=== PATIENT | male | born 1940 | race Caucasian/White ===

== ENCOUNTER 2020-12-05 12:48 | Inpatient (IN) | payer MEDICARE, SELFPAY ==
[2020-12-05] VITALS (10 sets, daily range): BP systolic 113–156; BP diastolic 62–90; PULSE 76–98; RESP 19–42; TEMP 36.5–37.5; O2SAT 97–100; BMI 21.2
--- NOTE | ~2020-12-05 | XR_ITS ---
EXAMINATION: XR chest 2V DATE: 12/08/2020 11:42 INDICATION: Pneumonia. TECHNIQUE: Frontal and lateral views of the chest were obtained. COMPARISON: Chest single view 12/05/2020, chest CT 12/05/2020 FINDINGS: There are small pleural effusions. There are airspace opacities at the lung bases. No pneum othorax. The heart size is normal. IMPRESSION: 1. Airspace opacities at the lung bases, consistent with atelectasis versus pneumonia. 2. Small pleural effusions. Reviewed, dictated and finalized at location A. IMPRESSION: 1. Airspace opacities at the lung bases, consistent with atelectasis versus pne umonia. 2. Small pleural effusions.
--- NOTE | ~2020-12-05 | CT_ITS ---
EXAMINATION: CT brain wo con DATE: 12/06/2020 08:52 INDICATION: Confusion. Altered mental status. TECHNIQUE: Computed tomography (CT) of the head was performed without intravenous contrast. The mA wa s adjusted according to patient size. Iterative reconstruction technique was employed. Exam dose: 68 1.00 mGy-cm total exam DLP. COMPARISON: 09/09/2013 MRI brain/brainstem FINDINGS: No intracranial mass lesion or hemorrhage or cerebrovascular accident is detected. No midli ne shift or mass effect effect. There is moderately prominent central and cortical cerebral atrophy. There is nonspecific diminished attenuation cerebral white matter, consistent with chronic small vessel ischemic changes. Bilateral c arotid siphon internal carotid artery calcifications are noted. No subdural or epidural hematoma. The orbital contents are unremarkable. No fracture or bone destruction of the cranial vault. There is mild mucoperiosteal thickening of the left maxillary sinus. The paranasal sinuses and mastoi d air cells otherwise are normally developed and aerated. IMPRESSION: Cerebral and cerebellar volume loss Cerebral atherosclerosis and chronic small vessel ischemic changes of the cerebral white matter Reviewed, dictated and finalized at Location A. Reviewed, dictated and finalized at location A. IMPRESSION: Cerebral and cerebellar volume loss Cerebral atherosclerosis and chronic small vessel ischemic changes of the cereb ral white matter
--- NOTE | ~2020-12-05 | US_ITS ---
EXAMINATION: US abdomen limited DATE: 12/05/2020 18:02 INDICATION: Distended gallbladder on CT TECHNIQUE: Multiple grayscale and Doppler ultrasound images of the abdomen were obtained. COMPARISON: CT dated 12/05/2020 FINDINGS: The pancreatic head and body are normal in appearance. The pancreatic tail is not visualized. The vi sualized proximal to mid inferior vena cava is normal. Liver has normal echogenicity and contour, wit h a smooth surface. No liver lesion identified. No intrahepatic biliary duct dilation suspected. Port al venous flow was seen in the hepatopetal, normal direction and has normal Doppler waveform. The gal lbladder is mildly dilated to 4.9 cm in maximal diameter but otherwise normal in appearance with no w all thickening or pericholecystic fluid. There is no cholelithiasis. The common bile duct measures 4 mm, which is normal. Sonographic Young sign was reported as negative by the commercial pilot.Visualized portion of the right kidney demonstrates normal echogenicity with no hydronephrosis. IMPRESSION: 1. Mild dilation of the otherwise normal gallbladder with no wall thickening, cholelithiasis or sonog raphic Young sign to suggest acute cholecystitis. No intra or extrahepatic biliary ductal dilation. Reviewed, dictated and finalized at location A. IMPRESSION: 1. Mild dilation of the otherwise normal gallbladder with no wall thickening, c holelithiasis or sonographic Young sign to suggest acute cholecystitis. No int ra or extrahepatic biliary ductal dilation.
--- NOTE | ~2020-12-05 | US_ITS ---
EXAMINATION: US venous doppler [facility] DATE: 12/06/2020 09:59 INDICATION: Hypoxia, acute pulmonary emboli TECHNIQUE: [place] scale images without and with compression and Doppler images of the bilateral lower e xtremity veins were obtained. COMPARISON: None FINDINGS: The right common femoral vein, profunda femoral vein, femoral vein, popliteal vein, peroneal trunk, p osterior tibial veins, and greater saphenous vein are patent. The left common femoral vein, profunda femoral vein, femoral vein, popliteal vein, peroneal trunk, po sterior tibial veins, and greater saphenous vein are patent. IMPRESSION: 1. Patent bilateral lower extremity veins. No evidence of deep venous thrombosis. Reviewed, dictated and finalized at location B. IMPRESSION: 1. Patent bilateral lower extremity veins. No evidence of deep venous thrombosi s.
--- NOTE | ~2020-12-05 | CT_ITS ---
EXAMINATION: CT brain wo con INDICATION: Generalized weakness and confusion COMPARISON: None TECHNIQUE: Standard unenhanced head CT. The dose-length product (DLP) was 681.00 mGy-cm. The mA was a djusted according to patient size. Iterative reconstruction technique was employed. FINDINGS: There is no acute intraparenchymal hemorrhage. No evidence of mass lesion. No evidence of a cute infarction. There is mild periventricular and subcortical hypodensity probably related to small vessel ischemic disease. There is mild prominence of the sulci and ventricles related to cerebral atr ophy. Intracranial calcified cerebral atherosclerosis is noted. There are no extra-axial collections. There is no mass effect or midline shift. Changes in the globes are likely from ocular lens surgery. The visualized sinuses and mastoid air cells are well aerated. IMPRESSION: 1. No acute intracranial abnormality. 2. Age related findings. Reviewed, dictated and finalized at location B.
--- NOTE | ~2020-12-05 | XR_ITS ---
MODIFIED ESOPHAGRAM HISTORY: Dysphagia. TECHNIQUE: Modified barium esophagram was performed by speech pathologist under radiologist fluorosco pic guidance. This was recorded on tape. The exam was reviewed on 12/12/2020 09:30 CDT. The DAP for this procedure was 0.628 Gycm2. Fluoroscopy time is 1 minute. FINDINGS: Lateral projection of the cervical spine demonstrates normal alignment.. During pharyngea l stage there is reduced tongue base retraction, reduced pharyngeal squeeze, vallecular residue, piri form sinus residue with laryngeal penetration and aspiration during multiple attempts to swallow pudd ing. Cough reflux elicited.. IMPRESSION: 1: Laryngeal penetration with aspiration. 2: Please refer to speech pathologist report for additional detail. Reviewed, dictated and finalized at location A.
--- NOTE | ~2020-12-05 | XR_ITS ---
EXAMINATION: XR chest 1V portable DATE: 12/05/2020 13:31 INDICATION: Lethargy. Hypoxia. TECHNIQUE: A single frontal view of the chest was obtained. COMPARISON: None. FINDINGS: The chest demonstrates clear lungs without pneumonia, pleural effusion, or pneumothorax. Th e heart size is normal. IMPRESSION: 1. No acute cardiopulmonary disease. Reviewed, dictated and finalized at location A.
--- NOTE | ~2020-12-05 | CT_ITS ---
EXAMINATION: CTA chest PE protocol DATE: 12/05/2020 17:11 INDICATION: Hypoxia. TECHNIQUE: Computed tomography angiography (CTA) of the chest was performed with 100 mL Omnipaque-350 intravenous contrast timed to evaluate the pulmonary arteries. Coronal maximum intensity projection 3D-reconstructions were created by the technologist. Automated exposure control and iterative reconst ruction technique were employed. The dose-length product was 321.85 mGy-cm. COMPARISON: Chest single view 12/05/2020 FINDINGS: There are dependent airspace opacities bilaterally. There are centrilobular nodules in righ t lower lobe. There is mucous plugging in left lower lobe. No pleural effusion. The heart size is nor mal. There are coronary artery calcifications. No pericardial effusion. There are acute pulmonary emb barrington in the lower lobes, left worse than right. The gallbladder is distended. There is mild thoracic s pondylosis. IMPRESSION: 1. Acute pulmonary emboli in the lower lobes, left worse than right. 2. Bilateral lower lobe pneumonia. 3. Distended gallbladder suspicious for acute cholecystitis. Reviewed, dictated and finalized at location A.
--- NOTE | 2020-12-05 13:17 | ECG_ITS ---
Measurements Intervals [place] Rate: 99 P: 81 TN: 108 QRS: 78 QRSD: 85 T: 76 QT: 348 QTc: 447 Interpretive Statements SINUS RHYTHM WITH SHORT TN INTERVAL POSSIBLE RIGHT ATRIAL ENLARGEMENT BORDERLINE ST-T WAVE ABNORMALITY- ANTEROLAT/INF LEADS BORDERLINE ECG Electronically Signed On 12-05-2020 13:42:39 CDT by Yousuf Balbuena D.O.
[2020-12-05] MEDS: ALBUTEROL SULFATE NEB 2.5 MG/0.5 ML INH 5 MG INHALATION ×2 (13:38→20:48)
[2020-12-05] MEDS: IPRATROPIUM BR 0.02% INH SOLN 0.5 MG/2.5 ML VIAL INHALATION ×2 (13:38→20:47)
[2020-12-05 14:15] LABS: Basophils Percent Auto 0.1 % (0.2-1.2); Hematocrit 43.4 % (42.0-52.0); Hemoglobin 15.1 g/dL (14.0-18.0); Immature Granulocyte Absolute 0.07 K/mm3 (0.00-0.031); Immature Granulocyte Percent A 0.3 % (0-0.5); Lymphocytes Absolute Auto 0.53 K/mm3 (0.9-3.2); Lymphocytes Percent Auto 2.6 % (18.3-44.2); Mean Corpuscular HGB Conc 34.8 g/dl (32-36); Mean Corpuscular Hemoglobin 32.7 pg (26-34); Mean Corpuscular Volume 93.9 fl (80-100); Mean Platelet Volume 9.2 fl (7.4-10.4); Monocytes Absolute Auto 1.2 K/mm3 (0.1-0.6); Monocytes Percent Auto 6.1 % (2.6-8.5); Neutrophils Absolute Auto 18.3 K/mm3 (1.3-6.7); Neutrophils Percent Auto 90.9 % (45.5-73.1); Platelet Count Result 361 k/mm3 (150-375); Red Blood Count 4.62 M/mm3 (4.6-6.20); Red Cell Distribution Width 12.1 % (11.5-14.5); White Blood Count 20.1 K/mm3 (4.5-10.0)
[2020-12-05 14:25] LABS: Ammonia < 9 umol/L (9-30)
[2020-12-05 14:26] LABS: Alanine Aminotransferase 18 U/L (4-50); Albumin Level 4.1 g/dL (3.5-5.1); Alkaline Phosphatase 92 U/L (38-126); Anion Gap 13 mmol/L (8-16); Aspartate Amino Transferase 92 U/L (17-59); Bilirubin,Total 1.5 mg/dL (0.2-1.3); Blood Urea Nitrogen 39 mg/dL (9-20); Calcium 9.4 mg/dL (8.4-10.2); Carbon Dioxide 28 mmol/L (22-30); Chloride 101 mmol/L (98-107); Estimated CRCL calculation 42 ml/min; Estimated Glomerular Filt Rate 58; Glucose 128 mg/dL (65-110); Potassium 3.7 mmol/L (3.4-5.0); Sodium 142 mmol/L (137-145)
[2020-12-05 14:31] LABS: Lactic Acid Reflex 2.7 mmol/L (0.7-2.1)
[2020-12-05] MEDS: LACTATED RINGERS 1,000 ML 999 ML IV CONT ×2 (14:38)
[2020-12-05 14:43] LABS: Troponin I 0.053 ng/mL (0.000-0.034)
[2020-12-05 15:00] LABS: Add Urine Microscopic? YES; Appearance Urine Clear (Clear); Bilirubin Urine 1+ (Negative); Blood Urine 2+ (Negative); Color Urine Amber (Yellow); Glucose Urine UA Negative (Negative); Ketones Urine 1+ mg/dL (Negative); Leukocyte Esterase Ur Negative LEU/UL (Negative); Mucus Urine Rare /lpf; Nitrate Urine Negative (Negative); Protein Urine 1+ mg/dL (Negative); RBC Urine 51-75 /hpf (0-2); Specific Grav Ur 1.027 (1.001-1.035); Squamous Epithelial Cell Urine Rare /hpf (Few)
--- NOTE | 2020-12-05 15:34 | ED.WEAKNESS ---
HPI - Weakness General Chief complaint: Weakness Stated complaint: Lethargy Time Seen by Provider: 12/05/20 12:57 Source: EMS Mode of arrival: EMS Limitations: dementia History of Present Illness HPI Narrative: 80-year-old male Hardly anything is known about this patient because he came from respite care at [facility] and they did not even provide a medication list, only a facesheet which does include DNR status, and there is nothing recent in the medical record here either All we know is that EMS was summoned to bring him to the hospital because of decreased responsiveness and that they placed him on facemask oxygen because of low oxygen saturations Here he is indeed lethargic does not follow commands does open his eyes when his name is called His arrived later and said he got a history of Lewy body dementia, had been at [facility] for about a week, there have been some thoughts of him having a little bit less activity and ambulation when they were in contact with him while he was there, and that basically when they arrived to pick him up today he was having trouble breathing and was not responding to them as well as usual She confirms he is a DNR. Also she is concerned she won't be able to have him at home any longer, wishes to consider possible permanent placement +/- hospice. Related Data Allergies Allergy/AdvReac Type Severity Reaction Status Date / Time No Known Drug Allergies Allergy Verified 12/05/20 13:12 Review of Systems Review of Systems: ROS unobtainable: Yes unobtainable due to mental status Exam Const: General: cooperative and ill appearing Orientation/consciousness: confusion Other: Elderly, frail, lethargic HENMT: Head: normocephalic and atraumatic Ears: external ears normal General nose exam: no epistaxis Mouth: Yes dry mucous membranes Eyes: Conjunctivae: conjunctivae normal EOM: EOMs intact bilaterally Neck: Neck: normal visual inspection, supple and no JVD Resp: Effort & Inspection: normal respiratory effort, not labored and tachypneic Auscultation: no rales, rhonchi, no wheezes and other (BS =) Cardio: Rate: regular rate Rhythm: regular rhythm Heart sounds: no murmurs GI: GI Palp: Yes Soft to palpation, No Guarding due to palpation present (GI) and No Rebound tenderness present Skin: General skin exam: normal color and no rashes or lesions noted Neuro: Other: O x0-1, not alert, did move both arms and both legs but not upon request Extrem: General: normal to inspection and no pedal edema Psych: Affect: normal affect Course Course Emergency Course: Vertigo on supplemental O2 and also received nebs because of the hypoxia; there was a presumption of some kind of infection and he received IV fluids and empiric antibiotics, and on recheck his heart rate was normal his blood pressure was normal and his oxygen saturation was normal; slight troponin leak Discussed with hospitalist for admission Vital Signs Vital signs: Vital Signs Temperature 36.5 C 12/05/20 12:50 Pulse Rate 97 12/05/20 12:50 Respiratory Rate 42 H 12/05/20 12:50 Blood Pressure 113/64 12/05/20 12:50 Pulse Oximetry 100 12/05/20 12:50 Temperature 36.5 C 12/05/20 12:50 Pulse Rate 81 12/05/20 15:30 Respiratory Rate 31 H 12/05/20 13:48 Blood Pressure 144/64 H 12/05/20 15:30 Pulse Oximetry 99 12/05/20 15:30 MDM - Weakness Lab Data Result diagrams: 12/05/20 13:56 12/05/20 13:56 Labs: Lab Results 12/05/20 12/05/20 12/05/20 Range/Units 13:56 13:56 13:56 WBC 20.1 H (4.5-10.0) K/mm3 RBC 4.62 (4.6-6.20) M/mm3 Hgb 15.1 (14.0-18.0) g/dL Hct 43.4 (42.0-52.0) % MCV 93.9 (80-100) fl MCH 32.7 (26-34) pg MCHC 34.8 (32-36) g/dl RDW 12.1 (11.5-14.5) % Plt Count 361 (150-375) k/mm3 MPV 9.2 (7.4-10.4) fl Immature Gran % (Auto) 0.3 (0-0.5) % Neut % (Auto) 90.9 H (45.5-73.1) % Lymph % (Auto) 2
--- NOTE | 2020-12-05 16:30 | PC.NURSE ---
Pt called out asking for pain medication. This RN notified MD. no new orders at this time
--- NOTE | 2020-12-05 17:01 | PC.NURSE ---
pt called out for pain and nausea medication. This RN notified
[2020-12-05 17:13] LABS: Reflex Lactic Acid Yes or No Add Lactic
[2020-12-05] MEDS: ENOXAPARIN 80 MG/0.8 ML SYRINGE 70 MG SUB-Q (17:56)
[2020-12-05 18:04] LABS: Lactic Acid 2.9 mmol/L (0.7-2.1)
--- NOTE | 2020-12-05 18:49 | PC.NURSE ---
This patient, Chirag Rodrigues, was admitted to [facility] Surg Room 307-02. Patient/family oriented to hospital policies and general routines including ID bracelet, bed and alarms, visiting hours, pain management, procedures, bathroom and other care routines, personal items, smoking policy, room service/diet, and visiting hours. Information on how to activate the Rapid Response Team has been discussed. Patient/Family are encouraged to report perceived risks to care and to ask questions if they do not understand what they are told or what they should do.
[2020-12-05 19:45] LABS: NT Pro B Type Natriuretic Pept 1350 pg/mL (5-100); Troponin I 0.045 ng/mL (0.000-0.034)
[2020-12-05] MEDS: LACTATED RINGERS 1,000 ML 125 ML IV CONT (20:26)
[2020-12-05 20:56] LABS: Troponin I 0.044 ng/mL (0.000-0.034)
--- NOTE | 2020-12-05 21:09 | PM.IMHP ---
H&P: HPI History of Present Illness Date/Time: 12/05/20 21:09 Chief Complaint: ALTERED MENTAL STATUS Narrative: THIS IS AN 80-YEAR-OLD MALE WITH PAST MEDICAL HISTORY SIGNIFICANT FOR LEVEL BODY DEMENTIA. PATIENT WAS BROUGHT IN FROM [facility]. HE WAS BROUGHT IN DUE TO CONCERNS FOR THE PATIENT'S DECLINE IN OVERALL FUNCTIONING STATUS FROM HIS USUAL AND ALTERED MENTAL STATUS. LATER ON CAME TO THE EMERGENCY ROOM AND STATED THAT SHE WILL LIKE FOR PERMANENT PLACEMENT FOR HER AT A SNF SHE IS UNABLE TO PROVIDE CARE FOR HIM, HE HAS ADVANCED DEMENTIA. PATIENT HAD DECREASED PULSE OX PRIOR TO COMING TO THE HOSPITAL AND EMS WAS CALLED DOES HOW HE ARRIVED TO THE EMERGENCY ROOM. PATIENT IS UNABLE TO PROVIDE ANY HISTORY HAD HE HE ONLY MOANS AND GROANS. PRELIMINARY WORKUP WAS SIGNIFICANT FOR A CTA OF CHEST WITH ACUTE PULMONARY EMBOLI AND BILATERAL INFILTRATES. Review of Systems Review of Systems: ROS unobtainable: Yes unobtainable due to medical condition (ADVANCED DEMENTIA) [facility] Social History Social History Smoking status: Never smoker Second hand tobacco smoke exposure: No Alcohol intake: former Substance use: never Substance use type: does not use Spiritual care concerns: No Meds Home Medications and Allergies Home Medications Medication Instructions Recorded Confirmed Type carbidopa-levodopa [Sinemet] See Rx Instructions .ROUTE .COMPLEX 12/05/20 12/05/20 History donepezil [Aricept] 10 mg PO DAILY 12/05/20 12/05/20 History ibuprofen 400 mg PO Q6H PRN 12/05/20 12/05/20 History latanoprost [Xalatan] 1 drp EACH EYE HS 12/05/20 12/05/20 History memantine [Namenda XR] 28 mg PO DAILY 12/05/20 12/05/20 History quetiapine [Seroquel] 25 mg PO HS 12/05/20 12/05/20 History Allergies Allergy/AdvReac Type Severity Reaction Status Date / Time No Known Drug Allergies Allergy Verified 12/05/20 13:12 Vital Signs Vital Signs - 24 hr 12/05/20 12:50 12/05/20 13:38 12/05/20 13:48 Temperature 97.7 F Pulse Rate 97 97 98 Respiratory Rate 42 H 34 H 31 H Blood Pressure 113/64 Pulse Oximetry 100 12/05/20 15:30 12/05/20 17:13 12/05/20 17:17 Temperature Pulse Rate 81 88 Respiratory Rate 19 Blood Pressure 144/64 H 156/90 H Pulse Oximetry 99 97 100 12/05/20 17:59 12/05/20 18:38 Temperature Pulse Rate 81 81 Respiratory Rate 23 H 32 H Blood Pressure 122/69 122/68 Pulse Oximetry 97 97 Exam Narrative: LAYING IN BED Const: General: comfortable, no acute distress, well developed, ill appearing acutely and patient obtunded Nutritional Appearance: average body habitus Orientation/consciousness: patient obtunded HENMT: Head: normal to inspection, normocephalic and atraumatic Ears: hearing grossly normal bilaterally General nose exam: Normal external nose present Face and sinus: normal facial exam Eyes: General: appearance normal, both eyes and all related structures Alignment and Position: alignment normal Sclera: sclerae normal Pupils: Equal, round and reactive pupils present EOM: EOMs intact bilaterally Neck: Neck: full ROM, no lymphadenopathy and no JVD Thyroid: thyroid normal Lymphatic: no lymphadenopathy noted Resp: Effort & Inspection: normal respiratory effort Auscultation: diminished lung sounds Cardio: Jugular venous distension: no JVD Rate: regular rate Rhythm: regular rhythm Heart sounds: S1 normal heart sound present and S2 normal heart sound present GI: GI Palp: Yes Soft to palpation, No Tenderness to palpation present (GI), No Guarding due to palpation present (GI) and Yes No hepatosplenomegaly present : General: Yes deferred Skin: Rashes: no rashes Wounds: no wounds Neuro: General: CN's II-XI intact bilaterally Cranial nerves: Yes CN's II-XII intact bilaterally and Yes Equal, round and reactive pupils present Cognition (Neuro): abnormal cognition Gait exam (Neuro): Unable
[2020-12-06] VITALS (20 sets, daily range): BP systolic 148–157; BP diastolic 67–87; PULSE 75–99; RESP 16–30; TEMP 36.8–37.2; O2SAT 95–100; BMI 21.2
--- NOTE | 2020-12-06 | ECHO_ITS ---
Patient Info Name: Chirag Rodrigues Age: 80 years : 1940 Gender: Male Ht: 65 in Wt: 203 lbs BSA: 2.09 m2 HR: 68 bpm BP: 151 / 76 mmHg Heart Rhythm: Sinus Rhythm Technical Quality: Poor Exam Date: 12/06/2020 1:07 PM Exam Location: [facility] Pulmonary Patient Status: Inpatient Admit Date: 12/05/2020 Staff Ordering Physician: Sarah Barnes MD Director Of Resource Development: Mer Mullins RDCS Attending Provider: Nellie Cosby MD Referring Physician: Molly OSPINA; Exam Type: CA echo dop color flow w con Study Info Indications I27.82 - Chronic pulmonary embolism Complete two-dimensional, color flow and Doppler transthoracic echocardiogram is performed with contrast to opacify the left ventricle and to improve the deliniation of the left ventricle endocardial borders. Contrast/Agitated Saline Contrast/Ag. Saline: Definity Amount: 1.00 ml Administered By: Danna Carter RN Existing IV Access: Yes IV Access Condition: patent with no signs of infiltration Reason for Poor Study: poor echocardiographic windows Summary 1. Technically difficult study with limited views. 2. Left ventricular systolic function is normal, estimated at 65-70%. 3. There is no increased left ventricular wall thickness. 4. There is trace tricuspid valve regurgitation. 5. Normal right ventricular systolic pressure estimated at 27 mmHg. 6. There is a small pericardial effusion with fibrinous material within the pericardial space anteriorly. Left Ventricle Left ventricular chamber dimension is normal. Left ventricular systolic function is normal, estimated at 65-70%. There is no increased left ventricular wall thickness. The left ventricular diastolic function is grade I diastolic dysfunction. Technically difficult study with limited views. Right Ventricle Right ventricular chamber dimension is normal. Right ventricular systolic function is normal. Left Atria Left atrial chamber dimension is normal. Right Atria Right atrial chamber dimension is normal. Aortic Valve The aortic valve is not well visualized. There is no aortic valve stenosis. There is no aortic valve regurgitation. Pulmonic Valve The pulmonic valve is not well visualized. Mitral Valve The mitral valve has normal leaflets. There is trace mitral valve regurgitation. The mitral valve annulus is mildly calcified. Tricuspid Valve The tricuspid valve leaflets are normal. There is trace tricuspid valve regurgitation. Normal right ventricular systolic pressure estimated at 27 mmHg. Pericardium/Pleural The pericardium appears normal. There is a small pericardial effusion with fibrinous material within the pericardial space anteriorly. Inferior Vena Cava Normal inferior vena cava with >50% collapse upon inspiration consistent with normal right atrial pressure, 5 mmHg. Tricuspid Valve Name Value Normal Estimated PAP/RSVP RA Pressure 5 mmHg <=5 Report Signatures
[2020-12-06] MEDS: ALBUTEROL SULFATE NEB 2.5 MG/0.5 ML INH 5 MG INHALATION ×4 (01:45→20:02)
[2020-12-06] MEDS: IPRATROPIUM BR 0.02% INH SOLN 0.5 MG/2.5 ML VIAL INHALATION ×4 (01:45→20:03)
[2020-12-06] MEDS: LACTATED RINGERS 1,000 ML 75 ML IV CONT ×2 (02:26→15:50)
[2020-12-06] MEDS: LATANOPROST 0.005% OP SOLN 2.5 ML BTL 1 DROP EACH EYE ×2 (02:26→21:37)
[2020-12-06] MEDS: MEMANTINE HCL XR 28 MG CAP PO (08:02)
[2020-12-06] MEDS: DONEPEZIL HCL 10 MG TABLET PO (08:02)
[2020-12-06] MEDS: CARBIDOPA/LEVODOPA 25/100 MG TABLET 1 TABLET BY MOUTH (08:04)
[2020-12-06] MEDS: PERFLUTREN LIPID MICROSPHERES 1.5 ML VIAL DILUTED TO 10 ML TOTAL VOLUME IV PUSH (13:32)
--- NOTE | 2020-12-06 15:47 | PCSTNOTE ---
On this date, patient refused to complete the attempted Bedside Swallow evaluation. present and stated patient has had ice chips with no coughing noted. He took one bite of pudding off the tip of a spoon but refused to continue. He basically stated, therapist should get the hell out of here. Additionally, he did not seem to be able to recognize his . Therapist contacted Karla, Hospitalist, to inform her and the evaluation will be attempted again in the morning.
--- NOTE | 2020-12-06 16:27 | PM.IMPN ---
Progress Note: A&P Assessment and Plan (1) Acute pulmonary embolism: Code(s): I26.99 - Other pulmonary embolism without acute cor pulmonale Status: Acute Assessment and Plan: Continue LOVENOX VENOUS DOPPLER-->Patent bilateral lower extremity veins; no evidence of deep venous thrombosis ECHOCARDIOGRAM-->pending (2) Pneumonia: Code(s): J18.9 - Pneumonia, unspecified organism Status: Acute Assessment and Plan: Continue with ROCEPHIN AND ZITHROMAX Follow BC S/p ZOSYN x1 IN EMERGENCY ROOM (3) Altered mental status: Code(s): R41.82 - Altered mental status, unspecified Status: Acute Assessment and Plan: LIKELY SECONDARY TO ABOVE CT of brain-->Cerebral and cerebellar volume loss Cerebral atherosclerosis and chronic small vessel ischemic changes of the cerebral white matter SUPPORTIVE CARE (4) Lewy body dementia: Code(s): G31.83 - Dementia with Lewy bodies; F02.80 - Dementia in other diseases classified elsewhere without behavioral disturbance Status: Acute Assessment and Plan: CONTINUE MEMANTINE, DONEPEZIL and SEROQUEL (5) Parkinson's disease: Code(s): G20 - Parkinson's disease Status: Acute Assessment and Plan: CONTINUE CARBIDOPA LEVODOPA (6) Elevated troponin: Code(s): R77.8 - Other specified abnormalities of plasma proteins Status: Acute Assessment and Plan: LIKELY TO BE NONISCHEMIC MYOCARDIAL INJURY Denies any CP of SOB CONTINUE TO MONITOR Subjective Date/time seen: 12/06/20 16:27 Interval history: pt seen and evaluated; at the bedside; no acute events overnight Review of Systems Review of Systems: ROS unobtainable: Yes unobtainable due to mental status Exam Const: General: no acute distress, alert and awake HENMT: Head: normocephalic and atraumatic Face and sinus: face symmetric Mouth: Yes Normal oral and palatal mucosa present Eyes: EOM: EOMs intact bilaterally Neck: Neck: full ROM, trachea midline and no JVD Thyroid: thyroid normal Chest: Chest palpation & inspection: normal inspection of the chest Resp: Effort & Inspection: normal respiratory effort Auscultation: diminished lung sounds Cardio: Jugular venous distension: no JVD Rate: regular rate Rhythm: regular rhythm Heart sounds: S1 normal heart sound present and S2 normal heart sound present GI: Inspection: normal to inspection GI Palp: Yes Soft to palpation Percussion: Yes normal to percussion Auscultation: normal bowel sounds : General: Yes no CVA tenderness Back/Spine/Pelvis: Back: no CVA tenderness Skin: General skin exam: normal color Rashes: no rashes Neuro: General: oriented to person Psych: Appearance: grossly normal Affect: normal affect Judgement: Good judgement present (Psych) Objective Data Vital Signs Vital Signs: Vital Signs - 24 hr 12/05/20 17:13 12/05/20 17:17 12/05/20 17:59 Temperature Pulse Rate 88 81 Respiratory Rate 19 23 H Blood Pressure 156/90 H 122/69 Pulse Oximetry 97 100 97 12/05/20 18:38 12/05/20 20:00 12/05/20 22:00 Temperature 37.5 C Pulse Rate 81 79 76 Respiratory Rate 32 H 22 H Blood Pressure 122/68 130/62 Pulse Oximetry 97 98 99 12/06/20 00:00 12/06/20 00:50 12/06/20 01:45 Temperature 36.9 C Pulse Rate 76 80 97 Respiratory Rate 20 30 H Blood Pressure 151/76 H Pulse Oximetry 98 12/06/20 02:00 12/06/20 04:00 12/06/20 06:00 Temperature 37.1 C Pulse Rate 99 75 84 Respiratory Rate 28 H 18 Blood Pressure 148/79 H Pulse Oximetry 100 12/06/20 09:03 12/06/20 09:05 12/06/20 09:15 Temperature Pulse Rate 87 75 Respiratory Rate 20 20 Blood Pressure Pulse Oximetry 95 12/06/20 09:30 12/06/20 14:00 12/06/20 14:23 Temperature 36.8 C Pulse Rate 88 87 Respiratory Rate 18 20 Blood Pressure 157/67 H Pulse Oximetry 100 98 12/06/20 14:35 Temperature Pulse Rate 80 Respiratory Rate 20 Blood Pressure
[2020-12-06] MEDS: ENOXAPARIN 100 MG/ML SYRINGE 90 MG SUB-Q (17:38)
[2020-12-07] VITALS (16 sets, daily range): BP systolic 136–153; BP diastolic 61–84; PULSE 72–93; RESP 18–24; TEMP 36.6–36.8; O2SAT 92–97; BMI 10.0
[2020-12-07] MEDS: LACTATED RINGERS 1,000 ML 75 ML IV CONT (01:45)
[2020-12-07] MEDS: ALBUTEROL SULFATE NEB 2.5 MG/0.5 ML INH 5 MG INHALATION ×4 (02:06→20:26)
[2020-12-07] MEDS: IPRATROPIUM BR 0.02% INH SOLN 0.5 MG/2.5 ML VIAL INHALATION ×4 (02:06→20:26)
[2020-12-07 06:46] LABS: Anion Gap 5 mmol/L (8-16); Blood Urea Nitrogen 20 mg/dL (9-20); Calcium 8.2 mg/dL (8.4-10.2); Carbon Dioxide 27 mmol/L (22-30); Chloride 107 mmol/L (98-107); Estimated CRCL calculation 79 ml/min; Estimated Glomerular Filt Rate > 60; Glucose 92 mg/dL (65-110); Potassium 3.4 mmol/L (3.4-5.0); Sodium 139 mmol/L (137-145)
[2020-12-07 09:12] LABS: Basophils Percent Auto 0.2 % (0.2-1.2); Eosinophils Percent Auto 0.3 % (0-4.4); Hematocrit 33.1 % (42.0-52.0); Hemoglobin 11.3 g/dL (14.0-18.0); Immature Granulocyte Absolute 0.09 K/mm3 (0.00-0.031); Immature Granulocyte Percent A 0.7 % (0-0.5); Lymphocytes Absolute Auto 0.88 K/mm3 (0.9-3.2); Lymphocytes Percent Auto 7.3 % (18.3-44.2); Mean Corpuscular HGB Conc 34.1 g/dl (32-36); Mean Corpuscular Hemoglobin 32.3 pg (26-34); Mean Corpuscular Volume 94.6 fl (80-100); Mean Platelet Volume 9.3 fl (7.4-10.4); Monocytes Absolute Auto 0.6 K/mm3 (0.1-0.6); Monocytes Percent Auto 4.9 % (2.6-8.5); Neutrophils Absolute Auto 10.4 K/mm3 (1.3-6.7); Neutrophils Percent Auto 86.6 % (45.5-73.1); Platelet Count Result 271 k/mm3 (150-375)
--- NOTE | 2020-12-07 10:41 | PCSTNOTE ---
Please refer to the Bedside Swallow Evaluation in the EMR. Please note, silent aspiration cannot be ruled out at bedside.
[2020-12-07] MEDS: CARBIDOPA/LEVODOPA 25/100 MG TABLET 1 TABLET BY MOUTH (11:58)
[2020-12-07] MEDS: metroNIDAZOLE 250 MG TABLET 500 MG PO (14:34)
--- NOTE | 2020-12-07 15:55 | PM.IMPN ---
Progress Note: A&P Assessment and Plan (1) Acute pulmonary embolism: Code(s): I26.99 - Other pulmonary embolism without acute cor pulmonale Status: Acute Assessment and Plan: Noted on CTA, not requiring oxygen -will continue with Lovenox and powell Eliquis. There is a small chance that he may need a feeding tube in the future so I will continue with Lovenox until this decision is made -echo with normal right ventricular systolic function (2) Pneumonia: Code(s): J18.9 - Pneumonia, unspecified organism Status: Acute Assessment and Plan: Likely aspiration pneumonia -continue ceftriaxone, azithromycin and add Flagyl -patient was unable to complete a swallow study today due to cooperation and confusion. I spoke with the about this. Although he has dementia and Parkinson's, 2 weeks ago he was able to eat on his own and walk without a walker. For this reason we will start peripheral feedings and hopefully his mental status improved with the improvement of his pneumonia. I would recommend repeating the swallow study and a day or 2 and going from there. I have asked the to think about if he fails a swallow study in the next couple days if she would want a feeding tube were she would want more more comfort/hospice care. -no signs of acute gallbladder disease on u/s (3) Altered mental status: Code(s): R41.82 - Altered mental status, unspecified Status: Acute Assessment and Plan: Likely secondary to above as well as dehydration (BUN and Cr improved from admission) -CT of the brain negative for acute pathology -if he continues to be confused and does not improve with antibiotics, consider repeat head CT or brain MRI since the patient's condition is vastly different than he was 2 weeks ago -UA neg, blood cultures NGTD (4) Lewy body dementia: Code(s): G31.83 - Dementia with Lewy bodies; F02.80 - Dementia in other diseases classified elsewhere without behavioral disturbance Status: Acute Assessment and Plan: Continue memantine, donepezil and Seroquel -see above (5) Parkinson's disease: Code(s): G20 - Parkinson's disease Status: Acute Assessment and Plan: CONTINUE CARBIDOPA LEVODOPA -continue PT/OT (6) Elevated troponin: Code(s): R77.8 - Other specified abnormalities of plasma proteins Status: Acute Assessment and Plan: LIKELY TO BE NONISCHEMIC MYOCARDIAL INJURY Denies any CP of SOB -echo without wall motion abnormalities (7) Transaminitis: Code(s): R74.01 - Elevation of levels of liver transaminase levels Status: Acute Assessment and Plan: AST slightly elevated on admission. Will check CK -monitor with daily labs Time Spent With Patient Time with patient: 25 - 35 minutes Subjective Date/time seen: 12/07/20 15:55 Interval history: Pt is a 80-year-old male here for pneumonia, PE and weakness. Patient was seen today and is pretty demented and unable to really answer many questions. He told me he was not in pain and he told me his name. Called his and spoke with her about the plan of care. The patient seems to be very weak and very different compared to just a couple weeks ago. She said at his baseline he was walking around without any assistive devices and she would cut up his food but he would eat freely. He is now not really eating, very weak and is not tolerating a swallow study. We have decided to go forward with peripheral feedings and hopefully he will improve on antibiotics and the next couple days we can repeat the swallow study. Review of Systems Review of Systems: All systems reviewed & are unremarkable except as noted in HPI and below Exam Narrative: General: Well developed well nourished patient in NAD HEENT: normocephalic Neck: supple Neuro: Alert and oriented to himself only. follows some commands. CV:RRR. Tele NSR rate of 83 wi
[2020-12-07 16:31] LABS: Partial Thromboplastin Time 32.8 SECONDS (22.3-36.8)
[2020-12-07 16:32] LABS: Magnesium 1.9 mg/dL (1.6-2.3)
[2020-12-07 16:39] LABS: Transferrin 95 mg/dL (206-381)
[2020-12-07 17:00] LABS: Creatine Kinase 491 U/L (55-170)
[2020-12-07 18:10] LABS: Glucose Point of Care 90 mg/dl (65-105)
[2020-12-07] MEDS: ENOXAPARIN 100 MG/ML SYRINGE 90 MG SUB-Q (19:21)
[2020-12-07] MEDS: FAT EMULSIONS IV 20% 250 ML 20.83 ML IVPB (19:33)
[2020-12-07] MEDS: AMINO ACIDS 4.25%/D5W/LYTES/CA 2,000 ML 80 ML IV CONT (19:33)
[2020-12-07] MEDS: LATANOPROST 0.005% OP SOLN 2.5 ML BTL 1 DROP EACH EYE (21:36)
[2020-12-08] VITALS (14 sets, daily range): BP systolic 142–147; BP diastolic 72–82; PULSE 67–85; RESP 18–20; TEMP 36.5–36.8; O2SAT 94–97
[2020-12-08] MEDS: IPRATROPIUM BR 0.02% INH SOLN 0.5 MG/2.5 ML VIAL INHALATION ×4 (01:38→20:51)
[2020-12-08] MEDS: ALBUTEROL SULFATE NEB 2.5 MG/0.5 ML INH 5 MG INHALATION ×4 (01:38→20:51)
--- NOTE | 2020-12-08 05:02 | PC.NURSE ---
unable to accurately record telemetry due to ms3 printer not working, upon observation of the monitor pt has been in normal sinus rhythm throughout the night. Will continue to monitor.
--- NOTE | 2020-12-08 05:06 | PC.NURSE ---
for 2100 med pass on 12/07/2020 pt began to vomit and choke when attempting a sip of water. Suctioned him and got him comfortable but could not safely pass his meds due to his poor swallow reflex/aspiration risk
[2020-12-08 06:20] LABS: Glucose Point of Care 113 mg/dl (65-105)
[2020-12-08 07:19] LABS: Basophils Percent Auto 0.2 % (0.2-1.2); Eosinophils Absolute Auto 0.1 K/mm3 (0-0.3); Eosinophils Percent Auto 0.5 % (0-4.4); Hematocrit 32.4 % (42.0-52.0); Immature Granulocyte Absolute 0.12 K/mm3 (0.00-0.031); Immature Granulocyte Percent A 1.1 % (0-0.5); Lymphocytes Percent Auto 7.1 % (18.3-44.2); Mean Corpuscular Hemoglobin 32.2 pg (26-34); Mean Corpuscular Volume 94.7 fl (80-100); Mean Platelet Volume 9.1 fl (7.4-10.4); Monocytes Absolute Auto 0.7 K/mm3 (0.1-0.6); Monocytes Percent Auto 5.9 % (2.6-8.5); Neutrophils Absolute Auto 9.6 K/mm3 (1.3-6.7); Neutrophils Percent Auto 85.2 % (45.5-73.1); Platelet Count Result 277 k/mm3 (150-375); Red Blood Count 3.42 M/mm3 (4.6-6.20); Red Cell Distribution Width 11.8 % (11.5-14.5); White Blood Count 11.2 K/mm3 (4.5-10.0)
[2020-12-08 07:49] LABS: Alanine Aminotransferase 44 U/L (4-50); Albumin Level 2.4 g/dL (3.5-5.1); Alkaline Phosphatase 63 U/L (38-126); Anion Gap 7 mmol/L (8-16); Aspartate Amino Transferase 51 U/L (17-59); Bilirubin Indirect 0.3 mg/dL (0-1.1); Bilirubin,Total 0.4 mg/dL (0.2-1.3); Blood Urea Nitrogen 15 mg/dL (9-20); Calcium 7.8 mg/dL (8.4-10.2); Carbon Dioxide 27 mmol/L (22-30); Chloride 99 mmol/L (98-107); Estimated CRCL calculation 79 ml/min; Estimated Glomerular Filt Rate > 60; Glucose 96 mg/dL (65-110); Magnesium 1.9 mg/dL (1.6-2.3); Phosphorus 3.5 mg/dL (2.5-4.5); Potassium 3.4 mmol/L (3.4-5.0); Sodium 133 mmol/L (137-145)
[2020-12-08 07:59] LABS: Creatine Kinase 343 U/L (55-170)
--- NOTE | 2020-12-08 10:56 | PCNFU ---
Nutrition Follow-Up Complete: Inadequate Oral Intake as related to pneumonia/dementia as evidenced by NPO/weight loss reported. Goal: Meet estimated nutritional needs Patient has limited progress towards goal. We will continue current goal. Pt current nutrition is NPO/PPN. Last recorded weight is 57.9 kg, no new weight to report. Bowel Motility:+BM reported 12/07 Labs Reviewed:Na 133,Cr 0.5 Meds Noted:Clinimix E 4.25/5 at 80 ml/hr with 250 ml of 20% Lipid Emulsion, Rocephin,Lovenox. Additional Notes: Patient started on PPN yesterday. Patient had Bedside Swallow on 12/07-recommend NPO at this time. Plans to continue PPN for a couple of days and attempted MBS. Current PPN is providing patient with 1153 kcals and 82 gms protein meeting 58% of patients caloric needs. Agree with current orders at this time. Monitoring: Will monitor every Saturday and Saturday.
--- NOTE | 2020-12-08 11:00 | PCPTNOTE ---
The patient treatment was not able to be completed due to patient out of room for testing this A.M.. Will plan to continue treatment per plan of care.
--- NOTE | 2020-12-08 11:04 | PM.IMPN ---
Progress Note: A&P Assessment and Plan (1) Acute pulmonary embolism: Code(s): I26.99 - Other pulmonary embolism without acute cor pulmonale Status: Acute Assessment and Plan: Noted on CTA, not requiring oxygen -will continue with Lovenox and transition to Eliquis on d/c. There is a small chance that he may need a feeding tube in the future so I will continue with Lovenox until this decision is made -echo with normal right ventricular systolic function -d/c tele (2) Pneumonia: Code(s): J18.9 - Pneumonia, unspecified organism Status: Acute Assessment and Plan: Likely aspiration pneumonia -continue ceftriaxone, azithromycin and add Flagyl -will repeat CXR today -patient was unable to complete a swallow study today due to cooperation and confusion. I spoke with the about this. Although he has dementia and Parkinson's, 2 weeks ago he was able to eat on his own and walk without a walker. For this reason we will start peripheral feedings and hopefully his mental status improved with the improvement of his pneumonia. I would recommend repeating the swallow study and a day or 2 and going from there. I have asked the to think about if he fails a swallow study in the next couple days if she would want a feeding tube were she would want more more comfort/hospice care. -no signs of acute gallbladder disease on u/s (3) Altered mental status: Code(s): R41.82 - Altered mental status, unspecified Status: Acute Assessment and Plan: Likely secondary to above as well as dehydration (BUN and Cr improved from admission) -CT of the brain negative for acute pathology -pt unable to sit still for MRI, will repeat CT since pt's mental status is very different from baseline (could be due to infx as well) -UA neg, blood cultures NGTD (4) Lewy body dementia: Code(s): G31.83 - Dementia with Lewy bodies; F02.80 - Dementia in other diseases classified elsewhere without behavioral disturbance Status: Acute Assessment and Plan: Continue memantine, donepezil and Seroquel -see above (5) Parkinson's disease: Code(s): G20 - Parkinson's disease Status: Acute Assessment and Plan: CONTINUE CARBIDOPA LEVODOPA -continue PT/OT (6) Elevated troponin: Code(s): R77.8 - Other specified abnormalities of plasma proteins Status: Acute Assessment and Plan: LIKELY TO BE NONISCHEMIC MYOCARDIAL INJURY Denies any CP of SOB -echo without wall motion abnormalities (7) Transaminitis: Code(s): R74.01 - Elevation of levels of liver transaminase levels Status: Acute Assessment and Plan: AST slightly elevated on admission and has resolved. CK mildly elevated likely due to being sedentary at AL over the weekend -monitor with daily labs Subjective Date/time seen: 12/08/20 11:04 Interval history: Pt is a 80-year-old male here for pneumonia, PE and weakness. Patient was seen today with at bedside. Pt is pretty demented and unable to really answer many questions. He told me he was not in pain and he told me his name. The patient seems to be very weak and very different compared to just a couple weeks ago according to . She said at his baseline he was walking around without any assistive devices and she would cut up his food but he would eat freely. He is now not really eating, very weak and is not tolerating a swallow study. He is coughing a lot. Exam Narrative: General: Well developed well nourished patient in NAD but audibly coughing HEENT: normocephalic Neck: supple Neuro: Alert and oriented to himself only. follows some commands. CV:RRR Resp:slight crackles bilaterally, mostly upper airway congestion and coughing. Wet cough on exam Abd: Soft, non distended. No pain to palpation. Positive bowel sounds Extremities: No swelling, erythema, or pain to palpation. Objective Data Vital Sign
[2020-12-08 12:17] LABS: Glucose Point of Care 124 mg/dl (65-105)
[2020-12-08 13:17] LABS: Triglycerides 98 mg/dL (<150)
[2020-12-08] MEDS: metroNIDAZOLE 500 MG/ISO 100ML 500 MG/100 ML BAG 100 MG IVPB ×2 (13:22→18:43)
[2020-12-08] MEDS: ENOXAPARIN 100 MG/ML SYRINGE 90 MG SUB-Q (18:08)
[2020-12-08] MEDS: FAT EMULSIONS IV 20% 250 ML 20.83 ML IVPB (18:08)
[2020-12-08 18:16] LABS: Glucose Point of Care 100 mg/dl (65-105)
[2020-12-08] MEDS: AMINO ACIDS 4.25%/D5W/LYTES/CA 2,000 ML 80 ML IV CONT (18:17)
[2020-12-08] MEDS: LATANOPROST 0.005% OP SOLN 2.5 ML BTL 1 DROP EACH EYE (20:48)
[2020-12-09] VITALS (13 sets, daily range): BP systolic 123–178; BP diastolic 75–79; PULSE 64–79; RESP 14–20; TEMP 36.2–37; O2SAT 94–97
[2020-12-09] MEDS: metroNIDAZOLE 500 MG/ISO 100ML 500 MG/100 ML BAG 100 MG IVPB ×4 (00:16→19:01)
[2020-12-09 00:57] LABS: Glucose Point of Care 102 mg/dl (65-105)
[2020-12-09] MEDS: IPRATROPIUM BR 0.02% INH SOLN 0.5 MG/2.5 ML VIAL INHALATION ×4 (02:53→20:32)
[2020-12-09] MEDS: ALBUTEROL SULFATE NEB 2.5 MG/0.5 ML INH 5 MG INHALATION ×4 (02:53→20:32)
[2020-12-09 06:17] LABS: Glucose Point of Care 99 mg/dl (65-105)
[2020-12-09 06:40] LABS: Basophils Percent Auto 0.4 % (0.2-1.2); Eosinophils Absolute Auto 0.1 K/mm3 (0-0.3); Eosinophils Percent Auto 1.4 % (0-4.4); Hematocrit 33.6 % (42.0-52.0); Hemoglobin 11.4 g/dL (14.0-18.0); Immature Granulocyte Percent A 2.1 % (0-0.5); Lymphocytes Absolute Auto 0.97 K/mm3 (0.9-3.2); Lymphocytes Percent Auto 10.1 % (18.3-44.2); Mean Corpuscular HGB Conc 33.9 g/dl (32-36); Mean Corpuscular Hemoglobin 32.3 pg (26-34); Mean Corpuscular Volume 95.2 fl (80-100); Mean Platelet Volume 8.9 fl (7.4-10.4); Monocytes Absolute Auto 0.7 K/mm3 (0.1-0.6); Monocytes Percent Auto 7.7 % (2.6-8.5); Neutrophils Absolute Auto 7.5 K/mm3 (1.3-6.7); Neutrophils Percent Auto 78.3 % (45.5-73.1); Platelet Count Result 302 k/mm3 (150-375); Red Blood Count 3.53 M/mm3 (4.6-6.20); Red Cell Distribution Width 11.9 % (11.5-14.5); White Blood Count 9.6 K/mm3 (4.5-10.0)
[2020-12-09 09:47] LABS: Anion Gap 5 mmol/L (8-16); Blood Urea Nitrogen 20 mg/dL (9-20); Calcium 8.1 mg/dL (8.4-10.2); Carbon Dioxide 27 mmol/L (22-30); Chloride 105 mmol/L (98-107); Estimated CRCL calculation 67 ml/min; Estimated Glomerular Filt Rate > 60; Glucose 89 mg/dL (65-110); Phosphorus 3.8 mg/dL (2.5-4.5); Potassium 3.8 mmol/L (3.4-5.0); Sodium 137 mmol/L (137-145)
--- NOTE | 2020-12-09 11:07 | PCNFU ---
Nutrition Follow-Up Complete: Inadequate Oral Intake as related to pneumonia/dementia as evidenced by NPO/weight loss reported. Goal: Meet estimated nutritional needs Limited progress towards goal. We will continue current goal. Pt current nutrition is NPO/PPN. Last recorded weight is 57.9 kg, no new weight to report. Bowel Motility:+BM reported 12/08 Labs Reviewed:Hgb 11.4,Hct 33.6, Cr 0.6 Meds Noted:Clinimix E 4.25/5 at 80 ml/hr with 250 ml Lipid Emulsion, Flagyl,Lovenox,Rocephin. Additional Notes: Nutrition follow up. Patient remains NPO x 4 days. PPN remains at this time providing an additional 1153 kcals and 82 gms protein. Nursing states patient is more alert today unsure about MBS today. If patient remains on IV nutrition recommend changing to central line TPN of Clinimix E 5/15 at 80 ml/hr with 250 ml of 20% Lipid Emulsion which will provide 1863 kcals and 96 gms protein. Will monitor every /Saturday.
[2020-12-09 11:54] LABS: Glucose Point of Care 102 mg/dl (65-105)
--- NOTE | 2020-12-09 17:25 | P.PNIM_ITS ---
Progress Note: A&P Assessment and Plan (1) Acute pulmonary embolism: Code(s): I26.99 - Other pulmonary embolism without acute cor pulmonale Status: Acute Assessment and Plan: * Noted on CTA, not requiring oxygen * Continue with Lovenox * transition to Eliquis on d/c. * may need a feeding tube, continue with Lovenox until further determination * echo with normal right ventricular systolic function * d/c tele (2) Pneumonia: Code(s): J18.9 - Pneumonia, unspecified organism Status: Acute Assessment and Plan: * Likely aspiration pneumonia * continue ceftriaxone (S: 12/05), azithromycin (S:12/06) and add Flagyl (S: 12/08) * repeat chest ray: airspace opacities at the lung bases with atelectasis vs PNA * WBC 9.6 * swallow study performed 12/07 undetermined per cooperation and confusion. * 2 weeks ago he was able to eat on his own and walk without a walker. * peripheral feedings for now * repeat the swallow study * Possible feeding tube needs -no signs of acute gallbladder disease on u/s (3) Altered mental status: Code(s): R41.82 - Altered mental status, unspecified Status: Acute Assessment and Plan: * Likely secondary to above as well as dehydration (BUN and Cr improved from admission) * CT of the brain negative for acute pathology * pt unable to sit still for MRI, will repeat CT * UA neg, blood cultures NGTD (4) Lewy body dementia: Code(s): G31.83 - Dementia with Lewy bodies; F02.80 - Dementia in other diseases classified elsewhere without behavioral disturbance Status: Acute Assessment and Plan: * Continue memantine, donepezil and Seroquel * see above (5) Parkinson's disease: Code(s): G20 - Parkinson's disease Status: Acute Assessment and Plan: * CONTINUE CARBIDOPA LEVODOPA * continue PT/OT (6) Elevated troponin: Code(s): R77.8 - Other specified abnormalities of plasma proteins Status: Acute Assessment and Plan: * LIKELY TO BE NONISCHEMIC MYOCARDIAL INJURY * Denies any CP of SOB * echo without wall motion abnormalities (7) Transaminitis: Code(s): R74.01 - Elevation of levels of liver transaminase levels Status: Acute Assessment and Plan: * AST slightly elevated on admission and has resolved. * CK mildly elevated likely due to being sedentary at AL * monitor with daily labs Time Spent With Patient Time with patient: Greater than 35 minutes Subjective Date/time seen: 12/09/20 16:25 Interval history: Pt is a 80-year-old male here for pneumonia, PE and weakness. Patient was able to communicate a little bit. He really had no complaints. Speech is garbled however he knew his birthday and name. His stated that he has been coughing. She stated that he has been producing a yellow sputum, but also stated that he has been swallowing most of it as well. There was no notation of chest pain, shortness of breath, nausea, vomiting, or any other type symptoms. His was also stated that the patient was able to swallow some pudding with his medications this morning. I did talk to the about next steps, and answered many of her questions. She was concerned about him not getting any of his medications. I explained that we could restart those when possible. I also spoke to her about what adding a feeding tube could look like. I also explained to her that even though he will most likely be placed in a home somewhere that she as th
--- NOTE | 2020-12-09 17:25 | PM.IMPN ---
Progress Note: A&P Assessment and Plan (1) Acute pulmonary embolism: Code(s): I26.99 - Other pulmonary embolism without acute cor pulmonale Status: Acute Assessment and Plan: Noted on CTA, not requiring oxygen Continue with Lovenox transition to Eliquis on d/c. may need a feeding tube, continue with Lovenox until further determination echo with normal right ventricular systolic function d/c tele (2) Pneumonia: Code(s): J18.9 - Pneumonia, unspecified organism Status: Acute Assessment and Plan: Likely aspiration pneumonia continue ceftriaxone (S: 12/05), azithromycin (S:12/06) and add Flagyl (S: 12/08) repeat chest ray: airspace opacities at the lung bases with atelectasis vs PNA WBC 9.6 swallow study performed 12/07 undetermined per cooperation and confusion. 2 weeks ago he was able to eat on his own and walk without a walker. peripheral feedings for now repeat the swallow study Possible feeding tube needs -no signs of acute gallbladder disease on u/s (3) Altered mental status: Code(s): R41.82 - Altered mental status, unspecified Status: Acute Assessment and Plan: Likely secondary to above as well as dehydration (BUN and Cr improved from admission) CT of the brain negative for acute pathology pt unable to sit still for MRI, will repeat CT UA neg, blood cultures NGTD (4) Lewy body dementia: Code(s): G31.83 - Dementia with Lewy bodies; F02.80 - Dementia in other diseases classified elsewhere without behavioral disturbance Status: Acute Assessment and Plan: Continue memantine, donepezil and Seroquel see above (5) Parkinson's disease: Code(s): G20 - Parkinson's disease Status: Acute Assessment and Plan: CONTINUE CARBIDOPA LEVODOPA continue PT/OT (6) Elevated troponin: Code(s): R77.8 - Other specified abnormalities of plasma proteins Status: Acute Assessment and Plan: LIKELY TO BE NONISCHEMIC MYOCARDIAL INJURY Denies any CP of SOB echo without wall motion abnormalities (7) Transaminitis: Code(s): R74.01 - Elevation of levels of liver transaminase levels Status: Acute Assessment and Plan: AST slightly elevated on admission and has resolved. CK mildly elevated likely due to being sedentary at [place] monitor with daily labs Time Spent With Patient Time with patient: Greater than 35 minutes Subjective Date/time seen: 12/09/20 16:25 Interval history: Pt is a 80-year-old male here for pneumonia, PE and weakness. Patient was able to communicate a little bit. He really had no complaints. Speech is garbled however he knew his birthday and name. His stated that he has been coughing. She stated that he has been producing a yellow sputum, but also stated that he has been swallowing most of it as well. There was no notation of chest pain, shortness of breath, nausea, vomiting, or any other type symptoms. His was also stated that the patient was able to swallow some pudding with his medications this morning. I did talk to the about next steps, and answered many of her questions. She was concerned about him not getting any of his medications. I explained that we could restart those when possible. I also spoke to her about what adding a feeding tube could look like. I also explained to her that even though he will most likely be placed in a home somewhere that she as the rehab care assistant will still need to keep up with his care. She expressed that she also has her own medical problems and that she cannot always care for him. I explained that she needs to take all of this in and make a pros and cons list for herself and determine what is important. She was excited that he was more alert today and that he was able to communicate better. On a side note, it seems that she is very disappointed with the care that he received
[2020-12-09 18:03] LABS: Glucose Point of Care 93 mg/dl (65-105)
[2020-12-09] MEDS: FAT EMULSIONS IV 20% 250 ML 20.83 ML IVPB (18:16)
[2020-12-09] MEDS: AMINO ACIDS 4.25%/D5W/LYTES/CA 2,000 ML 80 ML IV CONT (18:16)
[2020-12-09] MEDS: ENOXAPARIN 100 MG/ML SYRINGE 90 MG SUB-Q (18:17)
[2020-12-09] MEDS: LATANOPROST 0.005% OP SOLN 2.5 ML BTL 1 DROP EACH EYE (22:12)
[2020-12-10] VITALS (12 sets, daily range): BP systolic 112–138; BP diastolic 58–104; PULSE 51–87; RESP 14–20; TEMP 36.4–36.7; O2SAT 85–98
[2020-12-10] MEDS: metroNIDAZOLE 500 MG/ISO 100ML 500 MG/100 ML BAG 100 MG IVPB ×4 (00:54→18:25)
[2020-12-10 01:20] LABS: Glucose Point of Care 95 mg/dl (65-105)
[2020-12-10] MEDS: ALBUTEROL SULFATE NEB 2.5 MG/0.5 ML INH 5 MG INHALATION ×4 (02:30→21:16)
[2020-12-10] MEDS: IPRATROPIUM BR 0.02% INH SOLN 0.5 MG/2.5 ML VIAL INHALATION ×4 (02:30→21:16)
[2020-12-10 07:00] LABS: Glucose Point of Care 100 mg/dl (65-105)
[2020-12-10 08:31] LABS: Anion Gap 8 mmol/L (8-16); Blood Urea Nitrogen 20 mg/dL (9-20); Calcium 8.1 mg/dL (8.4-10.2); Carbon Dioxide 23 mmol/L (22-30); Chloride 103 mmol/L (98-107); Estimated CRCL calculation 82 ml/min; Estimated Glomerular Filt Rate > 60; Glucose 98 mg/dL (65-110); Potassium 3.8 mmol/L (3.4-5.0); Sodium 134 mmol/L (137-145)
[2020-12-10] MEDS: MEMANTINE HCL XR 28 MG CAP PO (09:26)
[2020-12-10] MEDS: CARBIDOPA/LEVODOPA 25/100 MG TABLET 1 TABLET BY MOUTH ×2 (09:26→17:14)
[2020-12-10] MEDS: DONEPEZIL HCL 10 MG TABLET PO (09:27)
[2020-12-10 12:50] LABS: Glucose Point of Care 104 mg/dl (65-105)
[2020-12-10 15:10] LABS: Triglycerides 64 mg/dL (<150)
--- NOTE | 2020-12-10 16:47 | P.PNIM_ITS ---
Progress Note: A&P Assessment and Plan (1) Swallowing difficulty: Code(s): R13.10 - Dysphagia, unspecified Status: Acute Assessment and Plan: * This is the main problem for this patient. * ST on board * Awaiting eval * might need feeding tube (2) Acute pulmonary embolism: Code(s): I26.99 - Other pulmonary embolism without acute cor pulmonale Status: Acute Assessment and Plan: * Seems to be resolved at this time. * Noted on CTA, not requiring oxygen * Continue with Lovenox * transition to Eliquis on d/c. * may need a feeding tube, continue with Lovenox until further determination * echo with normal right ventricular systolic function * d/c tele * Still no need for oxygen (3) Pneumonia: Code(s): J18.9 - Pneumonia, unspecified organism Status: Acute Assessment and Plan: * Likely aspiration pneumonia * continue ceftriaxone (S: 12/05), azithromycin (S:12/06) and add Flagyl (S: 12/08) * repeat chest ray: airspace opacities at the lung bases with atelectasis vs PNA * WBC 9.6 12/09/20 * swallow study performed 12/07 undetermined per cooperation and confusion. * 2 weeks ago he was able to eat on his own and walk without a walker. * peripheral feedings for now * repeat the swallow study * Possible feeding tube needs -no signs of acute gallbladder disease on u/s (4) Altered mental status: Code(s): R41.82 - Altered mental status, unspecified Status: Acute Assessment and Plan: * Likely secondary to above as well as dehydration (BUN and Cr improved from admission) * CT of the brain negative for acute pathology * pt unable to sit still for MRI, will repeat CT * UA neg, blood cultures NGTD (5) Lewy body dementia: Code(s): G31.83 - Dementia with Lewy bodies; F02.80 - Dementia in other diseases classified elsewhere without behavioral disturbance Status: Acute Assessment and Plan: * Continue memantine, donepezil and Seroquel * see above (6) Parkinson's disease: Code(s): G20 - Parkinson's disease Status: Acute Assessment and Plan: * CONTINUE CARBIDOPA LEVODOPA * continue PT/OT (7) Elevated troponin: Code(s): R77.8 - Other specified abnormalities of plasma proteins Status: Acute Assessment and Plan: * LIKELY TO BE NONISCHEMIC MYOCARDIAL INJURY * Denies any CP of SOB * echo without wall motion abnormalities (8) Transaminitis: Code(s): R74.01 - Elevation of levels of liver transaminase levels Status: Acute Assessment and Plan: * AST slightly elevated on admission and has resolved. * CK mildly elevated likely due to being sedentary at AL * monitor with daily labs Time Spent With Patient Time with patient: Greater than 35 minutes Subjective Date/time seen: 12/10/20 08:40 Interval history: Pt is a 80-year-old male here for pneumonia, PE and weakness. Patient is very active this morning. He is able to tell me who he is and where he is today. He is a little garbled with speech, but he does try. I could not get a good review of systems due mental status. I have been trying to get in touch with speech so that they could do another swallow eval on this patient. I do not see a note at this time, so I will continue to follow up with this patient tomorrow. Review of Systems Review of Systems: All systems reviewed & are unremarkable except as noted i
--- NOTE | 2020-12-10 16:47 | PM.IMPN ---
Progress Note: A&P Assessment and Plan (1) Swallowing difficulty: Code(s): R13.10 - Dysphagia, unspecified Status: Acute Assessment and Plan: This is the main problem for this patient. ST on board Awaiting eval might need feeding tube (2) Acute pulmonary embolism: Code(s): I26.99 - Other pulmonary embolism without acute cor pulmonale Status: Acute Assessment and Plan: Seems to be resolved at this time. Noted on CTA, not requiring oxygen Continue with Lovenox transition to Eliquis on d/c. may need a feeding tube, continue with Lovenox until further determination echo with normal right ventricular systolic function d/c tele Still no need for oxygen (3) Pneumonia: Code(s): J18.9 - Pneumonia, unspecified organism Status: Acute Assessment and Plan: Likely aspiration pneumonia continue ceftriaxone (S: 12/05), azithromycin (S:12/06) and add Flagyl (S: 12/08) repeat chest ray: airspace opacities at the lung bases with atelectasis vs PNA WBC 9.6 12/09/20 swallow study performed 12/07 undetermined per cooperation and confusion. 2 weeks ago he was able to eat on his own and walk without a walker. peripheral feedings for now repeat the swallow study Possible feeding tube needs -no signs of acute gallbladder disease on u/s (4) Altered mental status: Code(s): R41.82 - Altered mental status, unspecified Status: Acute Assessment and Plan: Likely secondary to above as well as dehydration (BUN and Cr improved from admission) CT of the brain negative for acute pathology pt unable to sit still for MRI, will repeat CT UA neg, blood cultures NGTD (5) Lewy body dementia: Code(s): G31.83 - Dementia with Lewy bodies; F02.80 - Dementia in other diseases classified elsewhere without behavioral disturbance Status: Acute Assessment and Plan: Continue memantine, donepezil and Seroquel see above (6) Parkinson's disease: Code(s): G20 - Parkinson's disease Status: Acute Assessment and Plan: CONTINUE CARBIDOPA LEVODOPA continue PT/OT (7) Elevated troponin: Code(s): R77.8 - Other specified abnormalities of plasma proteins Status: Acute Assessment and Plan: LIKELY TO BE NONISCHEMIC MYOCARDIAL INJURY Denies any CP of SOB echo without wall motion abnormalities (8) Transaminitis: Code(s): R74.01 - Elevation of levels of liver transaminase levels Status: Acute Assessment and Plan: AST slightly elevated on admission and has resolved. CK mildly elevated likely due to being sedentary at AL monitor with daily labs Time Spent With Patient Time with patient: Greater than 35 minutes Subjective Date/time seen: 12/10/20 08:40 Interval history: Pt is a 80-year-old male here for pneumonia, PE and weakness. Patient is very active this morning. He is able to tell me who he is and where he is today. He is a little garbled with speech, but he does try. I could not get a good review of systems due mental status. I have been trying to get in touch with speech so that they could do another swallow eval on this patient. I do not see a note at this time, so I will continue to follow up with this patient tomorrow. Review of Systems Review of Systems: All systems reviewed & are unremarkable except as noted in HPI and below ROS unobtainable: Yes unobtainable due to mental status Exam Const: General: comfortable, no acute distress, well developed, alert, awake and patient obtunded Nutritional Appearance: average body habitus Orientation/consciousness: oriented to person and oriented to place HENMT: Head: normal to inspection, normocephalic and atraumatic Ears: hearing grossly normal bilaterally General nose exam: Normal external nose present Face and sinus: normal facial exam and face symmetric Mouth: Yes Normal oral
[2020-12-10] MEDS: FAT EMULSIONS IV 20% 250 ML 20.83 ML IVPB (17:01)
[2020-12-10] MEDS: AMINO ACIDS 4.25%/D5W/LYTES/CA 2,000 ML 80 ML IV CONT (17:02)
[2020-12-10] MEDS: ENOXAPARIN 100 MG/ML SYRINGE 90 MG SUB-Q (17:13)
[2020-12-10 18:29] LABS: Glucose Point of Care 101 mg/dl (65-105)
[2020-12-10] MEDS: CARBIDOPA/LEVODOPA 25/100 MG TABLET 2 TABLET BY MOUTH (22:10)
[2020-12-10] MEDS: QUEtiapine FUMARATE 25 MG TABLET PO (22:10)
[2020-12-10] MEDS: LATANOPROST 0.005% OP SOLN 2.5 ML BTL 1 DROP EACH EYE (22:20)
[2020-12-11] MEDS: metroNIDAZOLE 500 MG/ISO 100ML 500 MG/100 ML BAG 100 MG IVPB ×5 (00:17→23:04)
[2020-12-11 00:47] LABS: Glucose Point of Care 121 mg/dl (65-105)
[2020-12-11] MEDS: IPRATROPIUM BR 0.02% INH SOLN 0.5 MG/2.5 ML VIAL INHALATION ×3 (03:14→20:50)
[2020-12-11] MEDS: ALBUTEROL SULFATE NEB 2.5 MG/0.5 ML INH 5 MG INHALATION ×3 (03:15→20:50)
[2020-12-11 06:00] VITALS: BP 132/61; PULSE 69; RESP 18; TEMP 36.2; O2SAT 96
[2020-12-11 06:51] LABS: Glucose Point of Care 101 mg/dl (65-105)
[2020-12-11] MEDS: CARBIDOPA/LEVODOPA 25/100 MG TABLET 1 TABLET BY MOUTH ×3 (08:34→16:32)
[2020-12-11 12:05] LABS: Glucose Point of Care 73 mg/dl (65-105)
[2020-12-11 14:00] VITALS: BP 125/68; PULSE 65; RESP 18; TEMP 36.5; O2SAT 100
--- NOTE | 2020-12-11 14:25 | PCSTNOTE ---
Scheduled pt for MBS but it was cancelled prior to him coming down to x-ray due to pt lethargy. Pt was given medication and not alert enough to tolerate swallow study which would indicate also not alert enough for bedside swallow evaluation. ST will attempt again tomorrow.
[2020-12-11 14:43] VITALS: PULSE 63; RESP 20
--- NOTE | 2020-12-11 15:32 | P.PNIM_ITS ---
Progress Note: A&P Assessment and Plan (1) Swallowing difficulty: Code(s): R13.10 - Dysphagia, unspecified Status: Acute Assessment and Plan: * This is the main problem for this patient. * ST on board * Awaiting eval * might need feeding tube * Modified barium swallow scheduled for tomorrow * Will need to hold his carbidopa levodopa prior to the exam (2) Acute pulmonary embolism: Code(s): I26.99 - Other pulmonary embolism without acute cor pulmonale Status: Acute Assessment and Plan: * Seems to be resolved at this time. * Noted on CTA, not requiring oxygen * Continue with Lovenox * transition to Eliquis on d/c. * may need a feeding tube, continue with Lovenox until further determination * echo with normal right ventricular systolic function * d/c tele * Still no need for oxygen (3) Pneumonia: Code(s): J18.9 - Pneumonia, unspecified organism Status: Acute Assessment and Plan: * Likely aspiration pneumonia * continue ceftriaxone (S: 12/05), azithromycin (S:12/06) and add Flagyl (S: 12/08) * repeat chest ray: airspace opacities at the lung bases with atelectasis vs PNA 12/08/20 * WBC 9.6 12/09/20 * swallow study performed 12/07 undetermined per cooperation and confusion. * 2 weeks ago he was able to eat on his own and walk without a walker. * peripheral feedings for now * repeat the swallow study tomorrow 12/12/2020 * Possible feeding tube needs -no signs of acute gallbladder disease on u/s (4) Altered mental status: Code(s): R41.82 - Altered mental status, unspecified Status: Acute Assessment and Plan: * Likely secondary to above as well as dehydration (BUN and Cr improved from admission) * CT of the brain negative for acute pathology * pt unable to sit still for MRI, will repeat CT * UA neg, blood cultures NGTD (5) Lewy body dementia: Code(s): G31.83 - Dementia with Lewy bodies; F02.80 - Dementia in other diseases classified elsewhere without behavioral disturbance Status: Acute Assessment and Plan: * Continue memantine, donepezil and Seroquel * see above (6) Parkinson's disease: Code(s): G20 - Parkinson's disease Status: Acute Assessment and Plan: * CONTINUE CARBIDOPA LEVODOPA * continue PT/OT * Will need to hold prior to swallow eval (7) Elevated troponin: Code(s): R77.8 - Other specified abnormalities of plasma proteins Status: Acute Assessment and Plan: * LIKELY TO BE NONISCHEMIC MYOCARDIAL INJURY * Denies any CP of SOB * echo without wall motion abnormalities (8) Transaminitis: Code(s): R74.01 - Elevation of levels of liver transaminase levels Status: Acute Assessment and Plan: * AST slightly elevated on admission and has resolved. * CK mildly elevated likely due to being sedentary at AL * monitor with daily labs Subjective Date/time seen: 12/11/20 12:35 Interval history: Patient 80-year-old male here for weakness, pulmonary embolism, pneumonia, swallowing difficulties. Patient was much more lucid today and would answer questions appropriately. He was A&O x2 he knew place and person. Patient denied chest pain shortness of breath nausea vomiting diarrhea constipation and abdominal pain however with patient's mental status a complete review of systems was unable to be determined. Review of Systems Review of Systems: JOSH
--- NOTE | 2020-12-11 15:32 | PM.IMPN ---
Progress Note: A&P Assessment and Plan (1) Swallowing difficulty: Code(s): R13.10 - Dysphagia, unspecified Status: Acute Assessment and Plan: This is the main problem for this patient. ST on board Awaiting eval might need feeding tube Modified barium swallow scheduled for tomorrow Will need to hold his carbidopa levodopa prior to the exam (2) Acute pulmonary embolism: Code(s): I26.99 - Other pulmonary embolism without acute cor pulmonale Status: Acute Assessment and Plan: Seems to be resolved at this time. Noted on CTA, not requiring oxygen Continue with Lovenox transition to Eliquis on d/c. may need a feeding tube, continue with Lovenox until further determination echo with normal right ventricular systolic function d/c tele Still no need for oxygen (3) Pneumonia: Code(s): J18.9 - Pneumonia, unspecified organism Status: Acute Assessment and Plan: Likely aspiration pneumonia continue ceftriaxone (S: 12/05), azithromycin (S:12/06) and add Flagyl (S: 12/08) repeat chest ray: airspace opacities at the lung bases with atelectasis vs PNA 12/08/20 WBC 9.6 12/09/20 swallow study performed 12/07 undetermined per cooperation and confusion. 2 weeks ago he was able to eat on his own and walk without a walker. peripheral feedings for now repeat the swallow study tomorrow 12/12/2020 Possible feeding tube needs -no signs of acute gallbladder disease on u/s (4) Altered mental status: Code(s): R41.82 - Altered mental status, unspecified Status: Acute Assessment and Plan: Likely secondary to above as well as dehydration (BUN and Cr improved from admission) CT of the brain negative for acute pathology pt unable to sit still for MRI, will repeat CT UA neg, blood cultures NGTD (5) Lewy body dementia: Code(s): G31.83 - Dementia with Lewy bodies; F02.80 - Dementia in other diseases classified elsewhere without behavioral disturbance Status: Acute Assessment and Plan: Continue memantine, donepezil and Seroquel see above (6) Parkinson's disease: Code(s): G20 - Parkinson's disease Status: Acute Assessment and Plan: CONTINUE CARBIDOPA LEVODOPA continue PT/OT Will need to hold prior to swallow eval (7) Elevated troponin: Code(s): R77.8 - Other specified abnormalities of plasma proteins Status: Acute Assessment and Plan: LIKELY TO BE NONISCHEMIC MYOCARDIAL INJURY Denies any CP of SOB echo without wall motion abnormalities (8) Transaminitis: Code(s): R74.01 - Elevation of levels of liver transaminase levels Status: Acute Assessment and Plan: AST slightly elevated on admission and has resolved. CK mildly elevated likely due to being sedentary at AL monitor with daily labs Subjective Date/time seen: 12/11/20 12:35 Interval history: Patient 80-year-old male here for weakness, pulmonary embolism, pneumonia, swallowing difficulties. Patient was much more lucid today and would answer questions appropriately. He was A&O x2 he knew place and person. Patient denied chest pain shortness of breath nausea vomiting diarrhea constipation and abdominal pain however with patient's mental status a complete review of systems was unable to be determined. Review of Systems Review of Systems: ROS unobtainable: Yes unobtainable due to mental status Exam Const: General: cooperative, healthy appearing, no acute distress, well developed, alert and awake Nutritional Appearance: well nourished Orientation/consciousness: patient oriented x3 Limitations: no limitations HENMT: Head: normal to inspection Ears: hearing grossly normal bilaterally General nose exam: Normal external nose present Mouth: Yes Normal oral and palatal mucosa present, Yes lip normal and Yes tongue normal Teeth and gingiva: abnormal tooth and a
--- NOTE | 2020-12-11 15:34 | PCPTNOTE ---
Will decrease frequency of PT treatment to 2-3x/wk due to pt's decreased ability to participate and tolerate therapy.
[2020-12-11] MEDS: ACETAMINOPHEN 325 MG TABLET 650 MG PO (16:32)
[2020-12-11] MEDS: ENOXAPARIN 100 MG/ML SYRINGE 90 MG SUB-Q (18:02)
[2020-12-11] MEDS: AMINO ACIDS 4.25%/D5W/LYTES/CA 2,000 ML 80 ML IV CONT (18:54)
[2020-12-11] MEDS: FAT EMULSIONS IV 20% 250 ML 20.8 ML IVPB (18:55)
[2020-12-11 19:19] LABS: Glucose Point of Care 80 mg/dl (65-105)
[2020-12-11 20:50] VITALS: PULSE 89; RESP 19
[2020-12-11 21:08] VITALS: PULSE 96; RESP 20
[2020-12-11 22:00] VITALS: BP 154/80; PULSE 73; RESP 20; TEMP 36.3; O2SAT 88
[2020-12-12 02:45] LABS: Glucose Point of Care 83 mg/dl (65-105)
[2020-12-12] MEDS: metroNIDAZOLE 500 MG/ISO 100ML 500 MG/100 ML BAG 100 MG IVPB ×3 (04:11→17:45)
[2020-12-12 05:46] VITALS: BP 150/81; PULSE 71; RESP 18; TEMP 36.2; O2SAT 92
[2020-12-12 06:06] LABS: Glucose Point of Care 81 mg/dl (65-105)
[2020-12-12 07:30] LABS: Basophils Absolute Auto 0.1 K/mm3 (0.0-0.1); Basophils Percent Auto 0.4 % (0.2-1.2); Eosinophils Absolute Auto 0.2 K/mm3 (0-0.3); Eosinophils Percent Auto 1.6 % (0-4.4); Hematocrit 41.8 % (42.0-52.0); Hemoglobin 14.1 g/dL (14.0-18.0); Immature Granulocyte Absolute 0.45 K/mm3 (0.00-0.031); Immature Granulocyte Percent A 3.7 % (0-0.5); Lymphocytes Absolute Auto 0.81 K/mm3 (0.9-3.2); Lymphocytes Percent Auto 6.7 % (18.3-44.2); Mean Corpuscular HGB Conc 33.7 g/dl (32-36); Mean Corpuscular Hemoglobin 31.9 pg (26-34); Mean Corpuscular Volume 94.6 fl (80-100); Mean Platelet Volume 8.5 fl (7.4-10.4); Monocytes Absolute Auto 0.7 K/mm3 (0.1-0.6); Monocytes Percent Auto 5.4 % (2.6-8.5); Neutrophils Percent Auto 82.2 % (45.5-73.1); Platelet Count Result 436 k/mm3 (150-375); Red Blood Count 4.42 M/mm3 (4.6-6.20); Red Cell Distribution Width 11.7 % (11.5-14.5); White Blood Count 12.1 K/mm3 (4.5-10.0)
[2020-12-12 07:39] LABS: INR 1.1; Prothrombin Time 13.6 Seconds (11.1-14.7)
--- NOTE | 2020-12-12 08:27 | PC.NURSE ---
Patient didn't appear to get any rest tonight. He was repositioned several times using a lift pad. He was incontinent of urine and stool multiple times and required 3 full bed changes in addition to brief changes. He appeared to be hallucinating and talking to people not present. He was resistant to touch and cares that required physical intervention.
[2020-12-12 08:48] LABS: Alanine Aminotransferase 39 U/L (4-50); Albumin Level 3.4 g/dL (3.5-5.1); Alkaline Phosphatase 68 U/L (38-126); Anion Gap 6 mmol/L (8-16); Aspartate Amino Transferase 71 U/L (17-59); Bilirubin,Total 0.3 mg/dL (0.2-1.3); Blood Urea Nitrogen 19 mg/dL (9-20); Calcium 8.8 mg/dL (8.4-10.2); Carbon Dioxide 24 mmol/L (22-30); Chloride 106 mmol/L (98-107); Estimated CRCL calculation 79 ml/min; Estimated Glomerular Filt Rate > 60; Glucose 99 mg/dL (65-110); Magnesium 2.3 mg/dL (1.6-2.3); Phosphorus 3.2 mg/dL (2.5-4.5); Potassium 4.8 mmol/L (3.4-5.0); Sodium 136 mmol/L (137-145)
--- NOTE | 2020-12-12 09:07 | PC.NURSE ---
patient to xray for MBS
--- NOTE | 2020-12-12 09:25 | PC.NURSE ---
patient returned from xray
--- NOTE | 2020-12-12 10:59 | PCSTNOTE ---
Please refer to the Modified Barium Swallow Evaluation in the EMR.
--- NOTE | 2020-12-12 11:30 | PCRCNOTE ---
Window of time for administration has passed. See next scheduled administration.
[2020-12-12] MEDS: CARBIDOPA/LEVODOPA 25/100 MG TABLET 1 TABLET BY MOUTH ×2 (11:58→16:50)
[2020-12-12 13:15] LABS: Glucose Point of Care 108 mg/dl (65-105)
--- NOTE | 2020-12-12 13:44 | P.PNIM_ITS ---
Progress Note: A&P Assessment and Plan (1) Swallowing difficulty: Code(s): R13.10 - Dysphagia, unspecified Status: Acute Assessment and Plan: * This is the main problem for this patient. * ST on board * Modified barium swallow Revealed severe aspiration * feeding tube versus hospice * Dr. Marquez consulted * will meet with hospice today (2) Pneumonia: Code(s): J18.9 - Pneumonia, unspecified organism Status: Acute Assessment and Plan: * pneumonia from aspiration * continue ceftriaxone (S: 12/05), azithromycin (S:12/06) and add Flagyl (S: 12/08) * WBC 12.1 12/12/2020 * swallow study performed 12/12 found severe aspiration * peripheral feedings for now * feeding tube verses hospice (3) Acute pulmonary embolism: Code(s): I26.99 - Other pulmonary embolism without acute cor pulmonale Status: Acute Assessment and Plan: * resolved * Noted on CTA, not requiring oxygen * Continue with Lovenox * echo with normal right ventricular systolic function (4) Altered mental status: Code(s): R41.82 - Altered mental status, unspecified Status: Acute Assessment and Plan: * resolved at this time * CT of the brain negative for acute pathology (5) Lewy body dementia: Code(s): G31.83 - Dementia with Lewy bodies; F02.80 - Dementia in other diseases classified elsewhere without behavioral disturbance Status: Acute Assessment and Plan: * Continue memantine, donepezil and Seroquel * see above (6) Parkinson's disease: Code(s): G20 - Parkinson's disease Status: Acute Assessment and Plan: * CONTINUE CARBIDOPA LEVODOPA * continue PT/OT * Will need to hold prior to swallow eval (7) Elevated troponin: Code(s): R77.8 - Other specified abnormalities of plasma proteins Status: Acute Assessment and Plan: * LIKELY TO BE NONISCHEMIC MYOCARDIAL INJURY * Denies any CP of SOB * echo without wall motion abnormalities (8) Transaminitis: Code(s): R74.01 - Elevation of levels of liver transaminase levels Status: Acute Assessment and Plan: * resolved. Subjective Date/time seen: 12/12/20 09:00 Interval history: patient is an 80-year-old male who is here for PE, pneumonia, dysphagia. Patient does seem to be more alert and awake. He is able to answer questions but confabulates when he does not know the answer. He denies having any problems in fact states that he has no problems. Patient goes for a barium swallow study today with speech therapy. It was determined that the patient has significant dysphagia and coughed a lot with a 3rd of a tsp of pudding. At that time the study was stopped. His did come in and asked that we give him his meds. I went and talked to his Nancy who was informed by the nurse that this patient had failed the swallow study. I went in and spoke to her about this patient and let her know that I consult to Dr. Marquez for possible feeding tube placement. I also explained to her that if she wanted to go with the feeding tube that this patient will need NG tube to safely deliver his p.o. medications and start tube feedings. I also stated that the other option would be hospice. I also gave her other options like working with speech therapy for strength building. towards the end the conversation the patient said that she was more interested in hospice at this
--- NOTE | 2020-12-12 13:44 | PM.IMPN ---
Progress Note: A&P Assessment and Plan (1) Swallowing difficulty: Code(s): R13.10 - Dysphagia, unspecified Status: Acute Assessment and Plan: This is the main problem for this patient. ST on board Modified barium swallow Revealed severe aspiration feeding tube versus hospice Dr. Marquez consulted will meet with hospice today (2) Pneumonia: Code(s): J18.9 - Pneumonia, unspecified organism Status: Acute Assessment and Plan: pneumonia from aspiration continue ceftriaxone (S: 12/05), azithromycin (S:12/06) and add Flagyl (S: 12/08) WBC 12.1 12/12/2020 swallow study performed 12/12 found severe aspiration peripheral feedings for now feeding tube verses hospice (3) Acute pulmonary embolism: Code(s): I26.99 - Other pulmonary embolism without acute cor pulmonale Status: Acute Assessment and Plan: resolved Noted on CTA, not requiring oxygen Continue with Lovenox echo with normal right ventricular systolic function (4) Altered mental status: Code(s): R41.82 - Altered mental status, unspecified Status: Acute Assessment and Plan: resolved at this time CT of the brain negative for acute pathology (5) Lewy body dementia: Code(s): G31.83 - Dementia with Lewy bodies; F02.80 - Dementia in other diseases classified elsewhere without behavioral disturbance Status: Acute Assessment and Plan: Continue memantine, donepezil and Seroquel see above (6) Parkinson's disease: Code(s): G20 - Parkinson's disease Status: Acute Assessment and Plan: CONTINUE CARBIDOPA LEVODOPA continue PT/OT Will need to hold prior to swallow eval (7) Elevated troponin: Code(s): R77.8 - Other specified abnormalities of plasma proteins Status: Acute Assessment and Plan: LIKELY TO BE NONISCHEMIC MYOCARDIAL INJURY Denies any CP of SOB echo without wall motion abnormalities (8) Transaminitis: Code(s): R74.01 - Elevation of levels of liver transaminase levels Status: Acute Assessment and Plan: resolved. Subjective Date/time seen: 12/12/20 09:00 Interval history: patient is an 80-year-old male who is here for PE, pneumonia, dysphagia. Patient does seem to be more alert and awake. He is able to answer questions but confabulates when he does not know the answer. He denies having any problems in fact states that he has no problems. Patient goes for a barium swallow study today with speech therapy. It was determined that the patient has significant dysphagia and coughed a lot with a 3rd of a tsp of pudding. At that time the study was stopped. His did come in and asked that we give him his meds. I went and talked to his Nancy who was informed by the nurse that this patient had failed the swallow study. I went in and spoke to her about this patient and let her know that I consult to Dr. Marquez for possible feeding tube placement. I also explained to her that if she wanted to go with the feeding tube that this patient will need NG tube to safely deliver his p.o. medications and start tube feedings. I also stated that the other option would be hospice. I also gave her other options like working with speech therapy for strength building. towards the end the conversation the patient said that she was more interested in hospice at this time. She stated that this is the 2nd marriage she has done this with and that she knows aspirations a big risk however she does not feel that he will be able to get better at this time. She also stated that she is aware that he is alert and more talkative but she does not feel like he would want this. She stated that she was going to talk to his son and his daughter about the next step. She still would like to hear from Dr. Marquez about the feeding tube, and she talked to care coordin
[2020-12-12 14:00] VITALS: BP 134/69; PULSE 67; RESP 20; TEMP 36.9; O2SAT 96
[2020-12-12 14:19] LABS: Triglycerides 82 mg/dL (<150)
[2020-12-12] MEDS: IPRATROPIUM BR 0.02% INH SOLN 0.5 MG/2.5 ML VIAL INHALATION ×2 (14:47→20:09)
[2020-12-12 14:48] VITALS: PULSE 94; RESP 20
[2020-12-12] MEDS: ALBUTEROL SULFATE NEB 2.5 MG/0.5 ML INH 5 MG INHALATION ×2 (14:48→20:09)
[2020-12-12] MEDS: ENOXAPARIN 100 MG/ML SYRINGE 90 MG SUB-Q (16:50)
--- NOTE | 2020-12-12 17:20 | WPDGICN ---
Assessment and Plan Assessment and plan (1) Swallowing difficulty: Code(s): R13.10 - Dysphagia, unspecified Status: Acute Assessment and Plan: patient here with aspiration pneumonia, acute PE on blood thinners and more confusion than usual. I discussed with in detail and she would like to talk to other family members and his children (she is her second ), prognosis is guarded and I said he still could have more episodes of aspirations even after placement of G-tube, also he is high risk because recent PE. I was told that family will discuss options with hospice team. other option for temporary feeding could be placement of DHT for feeding in the meantime (2) Aspiration pneumonia: Code(s): J69.0 - Pneumonitis due to inhalation of food and vomit Status: Acute Assessment and Plan: treated with iv antibiotics (3) Acute pulmonary embolism: Code(s): I26.99 - Other pulmonary embolism without acute cor pulmonale Status: Acute Assessment and Plan: on blood thinner (4) Altered mental status: Code(s): R41.82 - Altered mental status, unspecified Status: Acute (5) Lewy body dementia: Code(s): G31.83 - Dementia with Lewy bodies; F02.80 - Dementia in other diseases classified elsewhere without behavioral disturbance Status: Acute GI Consult Note Consult date/time: 12/12/20 17:20 Reason for consult: dysphagia, aspiration pneumonia, PE, dementia. HPI: Chirag Rodrigues is a 80 year old male with history of Lewy body dementia, Parkinson's admitted 12/05/20 with rapid declined in overall status. says that patient was living with her but recently took him to a local SNF for respite since she went to see her family for few days. After she came back, noted that he was more lethargic than usual and also with cough and respiratory symptoms. He was brought here, CTA chest reviewed, showed acute pulmonary emboli in the lower lobes, left worse than right and bilateral lower lobe pneumonia. He has dementia and most of history obtained from records and . He also did not pass a recent barium swallow test and he is NPO status. says that he at baseline he used to eat small portions, in occasions will cough but never had obvious signs of aspiration. He is on antibiotics and blood thinners. Review of Systems Constitutional: Constitutional: Denies chills Eyes: Eyes: Reports no additional eye complaints ENT: Reports Normal hearing present Cardiovascular: Cardiovascular: Denies leg edema Respiratory: Respiratory: Reports dyspnea Gastrointestinal: Comments: dysphagia Genitourinary: Genitourinary: Denies dysuria Musculoskeletal: Musculoskeletal: Denies neck pain Integumentary/Breasts: Skin/Breast: Denies dry skin Psychiatric: Comments: dementia, parkinson PMFSH Past Medical History Medical History (Updated 12/12/20 @ 17:27 by Janusz Bryant MD) Aspiration pneumonia Social History Social History Smoking status: Never smoker Second hand tobacco smoke exposure: No Alcohol intake: former Substance use: never Substance use type: does not use Spiritual care concerns: No Meds Home Medications and Allergies Home Medications Medication Instructions Recorded Confirmed Type carbidopa-levodopa [Sinemet] See Rx Instructions .ROUTE .COMPLEX 12/05/20 12/05/20 History donepezil [Aricept] 10 mg PO DAILY 12/05/20 12/05/20 History ibuprofen 400 mg PO Q6H PRN 12/05/20 12/05/20 History latanoprost [Xalatan] 1 drp EACH EYE HS 12/05/20 12/05/20 History memantine [Namenda XR] 28 mg PO DAILY 12/05/20 12/05/20 History quetiapine [Seroquel] 25 mg PO HS 12/05/20 12/05/20 History Allergies Allergy/AdvReac Type Severity Reaction Status Date / Time No Known Drug Allergies Allergy Verified 12/05/20 13:12 Vital Signs Vital Signs - 24 hr 12/11/20 20:50 12/11/20 21:08
[2020-12-12] MEDS: FAT EMULSIONS IV 20% 250 ML 20.8 ML IVPB (17:45)
[2020-12-12] MEDS: AMINO ACIDS 4.25%/D5W/LYTES/CA 2,000 ML 80 ML IV CONT (17:45)
[2020-12-12 18:11] LABS: Glucose Point of Care 105 mg/dl (65-105)
[2020-12-12 19:56] LABS: Transferrin 127 mg/dL (206-381)
[2020-12-12 20:09] VITALS: PULSE 96; RESP 20
[2020-12-12 20:21] VITALS: PULSE 97; RESP 20
[2020-12-12] MEDS: CARBIDOPA/LEVODOPA 25/100 MG TABLET 2 TABLET BY MOUTH (20:23)
[2020-12-12] MEDS: LATANOPROST 0.005% OP SOLN 2.5 ML BTL 1 DROP EACH EYE (20:24)
[2020-12-12] MEDS: QUEtiapine FUMARATE 25 MG TABLET PO (20:24)
[2020-12-12 21:43] VITALS: BP 123/58; PULSE 66; RESP 18; TEMP 36.3; O2SAT 97
[2020-12-13] VITALS (9 sets, daily range): BP systolic 144–152; BP diastolic 59; PULSE 60–95; RESP 18–20; TEMP 36.3–36.7; O2SAT 94–98
[2020-12-13] MEDS: metroNIDAZOLE 500 MG/ISO 100ML 500 MG/100 ML BAG 100 MG IVPB ×3 (00:17→12:26)
[2020-12-13] MEDS: ALBUTEROL SULFATE NEB 2.5 MG/0.5 ML INH 5 MG INHALATION ×3 (01:54→16:10)
[2020-12-13] MEDS: IPRATROPIUM BR 0.02% INH SOLN 0.5 MG/2.5 ML VIAL INHALATION ×3 (01:54→16:10)
[2020-12-13 03:45] LABS: Glucose Point of Care 134 mg/dl (65-105)
[2020-12-13 07:17] LABS: Glucose Point of Care 106 mg/dl (65-105)
[2020-12-13 07:36] LABS: Anion Gap 5 mmol/L (8-16); Blood Urea Nitrogen 27 mg/dL (9-20); Calcium 8.5 mg/dL (8.4-10.2); Carbon Dioxide 20 mmol/L (22-30); Chloride 106 mmol/L (98-107); Estimated CRCL calculation 66 ml/min; Estimated Glomerular Filt Rate > 60; Glucose 101 mg/dL (65-110); Phosphorus 3.9 mg/dL (2.5-4.5); Potassium 4.6 mmol/L (3.4-5.0); Sodium 131 mmol/L (137-145)
[2020-12-13] MEDS: CARBIDOPA/LEVODOPA 25/100 MG TABLET 1 TABLET BY MOUTH ×3 (09:19→18:17)
[2020-12-13] MEDS: MEMANTINE HCL XR 28 MG CAP PO (09:19)
[2020-12-13] MEDS: DONEPEZIL HCL 10 MG TABLET PO (09:20)
--- NOTE | 2020-12-13 11:28 | PCNFU ---
Nutrition Follow-Up Complete: Inadequate Oral Intake as related to pneumonia/dementia as evidenced by NPO/weight loss reported. Goal:Meet estimated nutritional needs Patient has limited progress towards goal. We will continue current goal. Pt current nutrition is NPO/PPN. Last recorded weight is 56.7 kg, down from 57.9 kg on admit. Bowel Motility:+BM reported 12/11 Labs Reviewed:Na 131,Cr 0.6, BUN 27 Meds Noted:Clinimix E 4.25/5 at 80 ml/hr with 250 ml of 20% Lipid Emulsion,Sinemet,Zithromax,Aricept,Atrovent,Seroquel,Flagyl. Additional Notes: Nutrition follow up. Patient had MBS on 12/12-recommending non-oral feeding. GI has been consulted for possible PEG placement. Current family is deciding PEG vs Hospice. Current PPN is providing patient with 1153 kcals and 82 gms protein, meeting 58% of caloric needs. RD will continue to monitor for further nutritional interventions. Monitoring: Will monitor every 3 days.
--- NOTE | 2020-12-13 11:38 | PM.DS ---
DS: Admitting Diagnosis Admitting Diagnosis DATE OF SERVICE 12/13/20 Lethargy DS: Discharge Diagnosis Discharge Diagnosis (1) Swallowing difficulty: Code(s): R13.10 - Dysphagia, unspecified Status: Acute Assessment and Plan: The patient is an 80-year-old man with a history we body dementia, who presented to the emergency room from [facility] with symptoms altered mental status and generalized weakness. Initial vitals showed stable blood pressure 113/64, pulse 97 beats per minute, respiratory rate increased, and found to be hypoxic requiring a non-rebreather mask at 10 L with an oxygen saturation 100%. Initial labs showed leukocytosis at 20,100, with elevated neutrophils, creatinine slightly elevated 1.2, BUN 39, lactic acid elevated at 2.7, slight elevation of AST. Urinalysis suggesting blood and bilirubin present, no signs of acute infection. CTA of the patient's chest showed acute pulmonary emboli in the lower lobes, left worse than right. Bilateral lower lobe pneumonia. Distended gallbladder suspicious for acute cholecystitis. Abd US showing Mild dilation of the otherwise normal gallbladder with no wall thickening, cholelithiasis or sonographic Young sign to suggest acute cholecystitis. No intra or extrahepatic biliary ductal dilation. The patient was admitted to the hospital and started on IV antibiotics for sepsis from pneumonia. During the patient's hospitalization he had issues with confusion and also concerned for aspiration. A modified barium swallow was completed showing laryngeal penetration without aspiration. Speech therapy did not recommend the patient eating and drinking anything in to remain NPO. GI had been consulted who discussed with the patient's family about a feeding tube, risks could and benefits. Further discussion with the patient's family, it was decided the patient would be discharged with hospice care to [facility]. The patient was discharged in stable condition to nursing facility with [facility]. The patient was discharged with a few more days of oral antibiotics, Augmentin. The patient was also prescribed Eliquis to take for acute PE if it was decided he would remain on it while on hospice. (2) Pneumonia: Code(s): J18.9 - Pneumonia, unspecified organism Status: Acute (3) Acute pulmonary embolism: Code(s): I26.99 - Other pulmonary embolism without acute cor pulmonale Status: Acute (4) Altered mental status: Code(s): R41.82 - Altered mental status, unspecified Status: Acute (5) Lewy body dementia: Code(s): G31.83 - Dementia with Lewy bodies; F02.80 - Dementia in other diseases classified elsewhere without behavioral disturbance Status: Acute (6) Parkinson's disease: Code(s): G20 - Parkinson's disease Status: Acute (7) Elevated troponin: Code(s): R77.8 - Other specified abnormalities of plasma proteins Status: Acute (8) Transaminitis: Code(s): R74.01 - Elevation of levels of liver transaminase levels Status: Acute DS: Summary Hospital Course Hospital Course: See above Status at Discharge Cognitive/behavioral status at discharge: Stable, improved. Time Spent with Patient Time attestation: Total time spent providing and/or coordinating discharge services: 43 Time spent: Greater than 30 minutes Exam Narrative: General: 80-year-old man sitting up in bed with at bedside. Appears comfortable on room air. In no acute distress. ENT: Dry mucus membranes. Skin: No jaundice or cyanosis. Good skin turgor. Respiratory: Lungs are clear to auscultation bilaterally. No wheezing or crackles. No bony chest wall tenderness. Cardiovascular: The heart has a regular rate and rhythm without murmur. Lower extremities: No lower extremity edema. Distal pulses are easily palpated. No calf tenderness to palpation. Gastrointestinal: The abdomen is soft, nontender
[2020-12-13 12:39] LABS: Glucose Point of Care 108 mg/dl (65-105)
--- NOTE | 2020-12-13 14:07 | WPDGIPROGNO ---
Progress Note: A&P Assessment and Plan (1) Swallowing difficulty: Code(s): R13.10 - Dysphagia, unspecified Status: Acute Assessment and Plan: family to enroll him in hospice, no invasive procedures will sign off (2) Aspiration pneumonia: Code(s): J69.0 - Pneumonitis due to inhalation of food and vomit Status: Acute Assessment and Plan: he is on antibiotics and breathing rx (3) Altered mental status: Code(s): R41.82 - Altered mental status, unspecified Status: Acute (4) Acute pulmonary embolism: Code(s): I26.99 - Other pulmonary embolism without acute cor pulmonale Status: Acute Assessment and Plan: treated with AC (5) Lewy body dementia: Code(s): G31.83 - Dementia with Lewy bodies; F02.80 - Dementia in other diseases classified elsewhere without behavioral disturbance Status: Acute Subjective Date/time seen: 12/13/20 14:07 Interval history: at bedside, patient still lethargic. Family decided to enroll in hospice. Review of Systems Review of Systems: All systems reviewed & are unremarkable except as noted in HPI and below Exam Const: General: ill appearing chronically Other: awake but confused HENMT: General nose exam: Normal nares present Eyes: Sclera: sclerae normal Neck: Neck: supple Resp: Auscultation: diminished lung sounds Cardio: Rate: regular rate GI: GI Palp: Yes Soft to palpation, No Tenderness to palpation present (GI) and No Guarding due to palpation present (GI) Auscultation: normal bowel sounds Skin: General skin exam: normal color Neuro: Other: awake, confused Extrem: General: normal to inspection Objective Data Vital Signs Vital Signs: Vital Signs - 24 hr 12/12/20 14:48 12/12/20 20:09 12/12/20 20:21 Temperature Pulse Rate 94 96 97 Respiratory Rate 20 20 20 Blood Pressure Pulse Oximetry 12/12/20 21:43 12/13/20 01:54 12/13/20 05:49 Temperature 97.3 F L 97.4 F L Pulse Rate 66 95 61 Respiratory Rate 18 18 Blood Pressure 123/58 L 152/59 H Pulse Oximetry 97 97 12/13/20 08:00 12/13/20 08:16 12/13/20 08:24 Temperature Pulse Rate 87 Respiratory Rate 20 Blood Pressure Pulse Oximetry 95 94 12/13/20 08:27 Temperature Pulse Rate 92 Respiratory Rate 20 Blood Pressure Pulse Oximetry Intake/Output Intake/Output: Intake & Output 12/10/20 12/11/20 12/12/20 12/13/20 23:59 23:59 23:59 23:59 Intake Total 2950 2950 2900 200 Output Total 1 Balance 2950 2949 2900 200 Meds/Results Medications: Active Medications Generic Name Dose Route Start Last Admin Trade Name Freq PRN Reason Stop Dose Admin Acetaminophen 650 mg 12/05/20 16:54 12/11/20 16:32 Acetaminophen 325 Mg Tablet PO 650 mg Q4H PRN Administration Mild Pain (1-3) or Fever Albuterol 5 mg 12/05/20 20:00 12/13/20 08:14 Albuterol Sulfate Neb 2.5 Mg/0.5 Ml Inh INHALATION 5 mg Q6HRT OCTAVIO Administration Carbidopa/Levodopa 1 tablet 12/06/20 08:00 12/13/20 12:27 Carbidopa/Levodopa 25/100 Mg Tablet BY MOUTH 1 tablet TIDWM OCTAVIO Administration Carbidopa/Levodopa 2 tablet 12/06/20 21:00 12/12/20 20:23 Carbidopa/Levodopa 25/100 Mg Tablet BY MOUTH 2 tablet HS OCTAVIO Administration Donepezil HCl 10 mg 12/06/20 09:00 12/13/20 09:20 Donepezil Hcl 10 Mg Tablet PO 10 mg DAILY OCTAVIO Administration Enoxaparin Sodium 90 mg 12/06/20 17:00 12/12/20 16:50 Enoxaparin 100 Mg/Ml Syringe SUB-Q 90 mg Q24H OCTAVIO Administration Ceftriaxone Sodium/Dextrose 1 gm in 50 mls @ 100 mls/hr 12/05/20 21:00 12/12/20 20:26 Rocephin 1 Gm/D5w 50 Ml IVPB 100 mls/hr HS OCTAVIO Administration Azithromycin 500 mg in 250 mls @ 250 mls/hr 12/06/20 02:00 12/13/20 01:29 Zithromax IVPB 250 mls/hr Q24H OCTAVIO Administration Dextrose 1,000 mls @ 50 mls/hr 12/07/20 15:38 Dextrose 10% IV CONT .Q20H PRN if PN is interrupted Amino Acids
[2020-12-13 17:41] LABS: Glucose Point of Care 87 mg/dl (65-105)
[2020-12-13] MEDS: ENOXAPARIN 100 MG/ML SYRINGE 90 MG SUB-Q (18:16)
== END 2020-12-13 18:48 | disposition hospice, inpatient (51) | DRG 871 ==
LOC: ANHED 16:54 → ANH3MEDSUR 12-07 07:17
PROVIDERS: Nurse Practitioner Adult Health; Physician Assistant; Admitting Provider Family Medicine; Emergency Provider Emergency Medicine; PCP Family Medicine; Visit Provider Physician Assistant
DX: A41.9 Sepsis, unspecified organism (principal); J69.0 Pneumonitis due to inhalation of food and vomit; I26.99 Other pulmonary embolism without acute cor pulmonale; R13.10 Dysphagia, unspecified; R41.82 Altered mental status, unspecified; G31.83 Neurocognitive disorder with Lewy bodies; F02.80 Dementia in other diseases classified elsewhere, unspecified severity, without behavioral disturbance, psychotic disturbance, mood disturbance, and anxiety; G20 Parkinson's disease; R77.8 Other specified abnormalities of plasma proteins; R74.01 Elevation of levels of liver transaminase levels; E86.0 Dehydration; Z66 Do not resuscitate; Z79.899 Other long term (current) drug therapy
CPT/HCPCS: 36415; 51701; 70450; 71045; 71046; 71275; 76705; 80048; 80053; 81001; 82140; 82248; 82550; 82948; 83605; 83735; 83880; 84100; 84443; 84466; 84478; 84484; 85025; 85610; 85730; 86140; 87040; 87086; 92610; 92611; 93005; 93306; 93970; 94640; 96365; 97110; 97161; 97165; 97530; 97535; 99285; A9270; C8929; J0456; J0696; J1650; J2543; J7120; Q9957; Q9967